=== PATIENT | female | born 1935 | race Caucasian/White ===

== ENCOUNTER → 2016-07-20 | Outpatient (CLI) | payer MEDICARE ==
--- NOTE | 2016-07-20 15:01 | BD ---
EXAMINATION TYPE: MG DEXA axial skeleton. DATE OF EXAM: 07/20/2016 2:12 PM COMPARISON: NONE CLINICAL HISTORY: N19.90 OSTEOARTHRITIS Height: 61 Weight: 215 FRAX RISK QUESTIONS: Alcohol (3 or more units per day): NO Family History (Parent hip fracture): UNKNOWN Glucocorticoids (More than 3mos): YES (Ex: prednisone, prednisolone, methylprednisolone, dexamethasone, and hydrocortisone). History of Fracture in Adulthood: YES Secondary Osteoporosis: NO 1. Type 1 Diabetes: NO 2. Hyperthyroidism: NO 3. Menopause before 45: NO 4. Malnutrition: NO 5. Chronic liver disease: NO Rheumatoid Arthritis: YES Current Tobacco Use: NO RISK FACTORS HISTORY OF: Other Fractures since Age 51: LT FOOT, AND TOES When: 04.13.2016 Family History of Osteoporosis: UNKNOWN Smoke tobacco: NO Drink Alcohol: NO Active: NO Diet low in dairy products/other sources of calcium: NO Postmenopausal woman: HYST AT AGE 60 YRS OLD, TUMOR Lost more than 2 inches in height since high school: PROBABLY Frequent falls: UNSTEADY, OUT OF BREATH Poor Health: SOB, ARTHRITIC, IN WHEELCHAIR Adrenal Insufficiency: NO MEDICATIONS: Prednisone or other steroids: STEROIDS FOR COPD, VENTOLIN AND PREDNISONE NEEDED How Long: FOR YRS Additional Medications: BP MEDS, INSULIN, ORAL DIABETIC MEDS, CALCIUM AND VIT D, HX OF RADIATION, Additional History: COPD, SLEEP APNEA, ARTHRITIS, DIABETIC, HX OF BREAST CANCER, RA, EXAM MEASUREMENTS: Bone mineral densitometry was performed using the [employer] System. Bone mineral density as measured about the Lumbar spine is: ----- L1-L4(G/cm2): 1.290 T Score Values are as follows: ----- L1: -2.2 ----- L2: 2.1 ----- L3: 3.4 ----- L4: 0.4 ----- L1-L4: 0.9 Bone mineral density THIS IS HER FIRST BONE DENSITY AT [facility] Bone mineral density about the R hip (g/cm2): 0.831 Bone mineral density about the L hip (g/cm2): 0.883 T Score values are as follows: -----R Neck: -1.5 -----L Neck: -1.1 -----R Intertrochanter: -1.3 -----L Intertrochanter: -1.0 Bone mineral density FIRST BONE DENSITY HERE AT [facility] FRAX %'S: 25.4% CHANCE OF MAJOR OSTEOPOROTIC FX AND 5.9% FOR A HIP FX.....PROBABILITY OF FX IN 1 0/YRS TIME IMPRESSION: Osteopenia (T Score between -2.5 and -1 as noted by T score values There is slightly increased risk of fracture and the patient may be considered for treatment. Re-Screen 1-2 years. FOR BOTH HIPS AND L4 OF SPINE ONLY NOTE: T-SCORE=SD OF THE YOUNG ADULT MEAN.
== END ==
LOC: RADBDWWP 13:34
PROVIDERS: ATTEND Internal Medicine
DX: M85.80 Other specified disorders of bone density and structure, unspecified site (principal)
CPT/HCPCS: 77080

== ENCOUNTER → 2016-07-25 | Outpatient (CLI) | payer MEDICARE ==
--- NOTE | 2016-07-25 18:01 | US ---
EXAMINATION TYPE: US venous doppler duplex LE BI DATE OF EXAM: 07/25/2016 5:41 PM COMPARISON: Prior in PACS CLINICAL HISTORY: R22.42/R22.41 swelling bilateral lower limbs. SIDE PERFORMED: Bilateral TECHNIQUE: The bilateral lower extremity deep venous system is examined utilizing real time linear a rray sonography with graded compression, doppler sonography and color-flow sonography. VESSELS IMAGED: External Iliac Vein (EIV) Common Femoral Vein Deep Femoral Vein Greater Saphenous Vein * Femoral Vein Popliteal Vein Small Saphenous Vein * Proximal Calf Veins (* superficial vessels) Right Leg: Negative for DVT Left Leg: Negative for DVT IMPRESSION: Grayscale, color doppler, spectral doppler imaging performed of the deep veins of the lo wer extremities. There is normal flow, compressibility, vascular waveforms bilaterally. There is no evidence of deep venous thrombosis in both legs.
--- NOTE | 2016-07-25 18:09 | CT ---
EXAMINATION TYPE: CT angio chest DATE OF EXAM: 07/25/2016 5:59 PM COMPARISON: 12/09/2013 HISTORY: Shortness of breath x [address] DLP: 523.10 mGycm Automated exposure control for dose reduction was used. CONTRAST: CTA scan of the thorax is performed with IV Contrast, patient injected with 73 mL of Visipaque 320, p ulmonary embolism protocol. There are 3-D post processed images.. FINDINGS: There is pulmonary emphysema. There is a right pleural effusion. There is a small pericardial effusio n. There are right bronchial lymph nodes that measure up to almost 2 cm. There 1 cm left bronchial ly mph nodes. There is no evidence of aortic dissection. Thoracic aorta is atheromatous. There is athero sclerotic vascular calcification. There is no evidence of aneurysm. I see no filling defects in the pulmonary arteries. IMPRESSION: NO EVIDENCE OF PULMONARY EMBOLISM. THERE IS CLEARING OF THE PULMONARY EMBOLI COMPARED TO OLD EXAM. THERE IS MILD BRONCHIAL ADENOPATHY TH ERE IS SLIGHTLY INCREASED. SMALL RIGHT PLEURAL EFFUSION IS NEW COMPARED TO OLD EXAM. MILD RIGHT LOWER LOBE ATELECTASIS IS NEW COMPARED TO OLD EXAM. MILD PULMONARY EMPHYSEMA. THERE IS CLEARING OF THE INF ILTRATE AND PLEURAL FLUID AND ATELECTASIS ON THE LEFT SIDE COMPARED TO OLD EXAM.
== END | disposition home or self-care (01) ==
LOC: RADCTMAIN 16:21
PROVIDERS: ATTEND Internal Medicine
DX: J90 Pleural effusion, not elsewhere classified (principal); J43.9 Emphysema, unspecified; R91.8 Other nonspecific abnormal finding of lung field
CPT/HCPCS: 82565; 84520; 93970; 71275; Q9967

== ENCOUNTER 2017-05-02 22:48 | Inpatient (IN) | payer MEDICARE ==
[2017-05-02] MEDS ORDERED: SODIUM CHLORIDE 0.9% 1,000 ML IV STA (22:55)
[2017-05-02] MEDS ORDERED: IPRATROPIUM-ALBUTEROL 3 ML NEB INHALATION STA (22:55)
--- NOTE | 2017-05-02 23:04 | ED ---
SOB HPI - General Stated Complaint: "not feeling well" Time Seen by Provider: 05/02/17 22:48 Source: patient, EMS, RN notes reviewed Mode of arrival: EMS - History of Present Illness Initial Comments: 81-year-old female who presents by EMS with complaints of not feeling well since chest today. She's had fevers chills sweats a cough and shortness of breath. She had dyspnea on exertion she does use oxygen at night but has her using during the day. She denies any overt chest pain she voices no other complaints at this time however. MD Complaint: shortness of breath, cough - Related Data Home Medications Medication Instructions Recorded Confirmed Allopurinol [Zyloprim] 300 mg PO DAILY 10/12/13 04/29/14 Atorvastatin Calcium [Lipitor] 40 mg PO DAILY 10/12/13 04/29/14 Gabapentin [Neurontin] 100 mg PO TID 10/12/13 04/29/14 Insulin Glargine [Lantus] 30 units SQ HS 10/12/13 04/29/14 Metoprolol Tartrate [Lopressor] 50 mg PO BID 10/12/13 04/29/14 Albuterol Nebulized [Ventolin 2.5 mg INHALATION RT-Q4H 12/08/13 04/29/14 Nebulized] Potassium Chloride [Potassium 20 meq PO BID 01/02/14 04/29/14 Chloride ER] Cholecalciferol [Vitamin D3] 4,000 unit PO DAILY 04/29/14 04/29/14 Docusate [Colace] 100 mg PO BID PRN 04/29/14 04/29/14 Furosemide [Lasix] 20 mg PO MOWEFR 04/29/14 04/29/14 Hydrocodone/Acetaminophen 7.5 - 325 mg PO QID PRN 04/29/14 04/29/14 [Hydrocodon-Acetaminoph 7.5-325] INSULIN LISPRO (humaLOG) [humaLOG] 10 units SQ PC-BRKFST 04/29/14 04/29/14 INSULIN LISPRO (humaLOG) [humaLOG] 14 units SQ PC-LUNCH 04/29/14 04/29/14 INSULIN LISPRO (humaLOG) [humaLOG] 16 units SQ PC-SUPPER 04/29/14 04/29/14 Lisinopril [Zestril] 10 mg PO BID 04/29/14 04/29/14 Previous Rx's Medication Instructions Recorded Omeprazole [PriLOSEC] 20 mg PO [facility] #30 capsule. 12/11/13 predniSONE 10 mg PO DIRECTED #24 tab 05/02/14 Azithromycin [Zithromax] 500 mg PO DAILY #5 tab 05/03/14 Budesonide-Formot 160-4.5 Mcg 2 puff INHALATION RT-BID #1 puff 05/03/14 [Symbicort 160-4.5 Mcg Inhaler] Docusate [Colace] 100 mg PO BID PRN #30 cap 05/03/14 Oseltamivir [Tamiflu] 75 mg PO BID #4 cap 05/03/14 Allergies Allergy/AdvReac Type Severity Reaction Status Date / Time No Known Allergies Allergy Verified 05/02/17 22:50 Review of Systems ROS Statement: Those systems with pertinent positive or pertinent negative responses have been documented in the HPI. ROS Other: All systems not noted in ROS Statement are negative. Past Medical History Past Medical History: Asthma, Cancer, Heart Failure, COPD, Diabetes Mellitus, GI Bleed, Hyperlipidemia, Hypertension, Osteoarthritis (OA), Pneumonia, Pulmonary Embolus (PE), Rheumatoid Arthritis (RA), Sleep Apnea/CPAP/BIPAP Additional Past Medical History / Comment(s): sleep apnea ,glaucoma, back pain History of Any Multi-Drug Resistant Organisms: None Reported Past Surgical History: Bowel Resection, Breast Surgery, Ear Surgery, Hysterectomy Additional Past Surgical History / Comment(s): Left breast lumpectomy 1989, lyh node removal, status post radiation, abd mass removed november of 2013 Past Anesthesia/Blood Transfusion Reactions: No Reported Reaction Past Psychological History: No Psychological Hx Reported Additional Psychological History / Comment(s): She lives with a friend, they do not drive. Meals on Wheels. Daughter lives close by and does help. Smoking Status: Former smoker Past Alcohol Use History: None Reported Past Drug Use History: None Reported - Past Family History Mother Family Medical History: Cancer General Exam - General Exam Comments Initial Comments: This is a well-developed well-nourished awake alert oriented 3 female General appearance: alert, in no apparent distress Head exam: Present: atraumatic, normocephalic, normal inspection Eye exam: Present: normal appearance, PERRL, EOMI. Absent: scleral icterus, conjunctival injection, periorbital swelling ENT exam: Present: mucous membranes dry Neck exam: Present: normal inspection. Absent: tenderness, meningismus, lymphadenopathy Respiratory exam: Present: decreased breath sounds. Absent: respiratory distress, wheezes, rales, rhonchi, stridor Cardiovascular Exam: Present: regular rate, normal rhythm, normal heart sounds. Absent: systolic murmur, diastolic murmur, rubs, gallop, clicks GI/Abdominal exam: Present: soft, normal bowel sounds. Absent: distended, tenderness, guarding, rebound, rigid Extremities exam: Present: normal inspection, full ROM, normal capillary refill. Absent: tenderness, pedal edema, joint swelling, calf tenderness Back exam: Present: normal inspection Neurological exam: Present: alert, oriented X3, CN II-XII intact Psychiatric exam: Present: normal affect, normal mood Skin exam: Present: warm, intact, normal color, diaphoretic. Absent: rash Course Vital Signs 05/02/17 05/02/17 05/02/17 22:50 23:21 23:23 Temperature 98.5 F Pulse Rate 86 79 Respiratory 18 Rate Blood Pressure 192/78 O2 Sat by Pulse 89 L 94 L Oximetry 05/02/17 05/03/17 23:28 00:00 Temperature Pulse Rate 82 68 Respiratory 18 Rate Blood Pressure 180/72 O2 Sat by Pulse 93 L Oximetry - Reevaluation(s) Reevaluation #1: 05/03/17 01:35 Reevaluation patient reveals that she still is running a low pulse ox in with oxygen. She desaturates down to about 91 and 92 with oxygen. This is well try to talk. I did discuss the findings with her she will be admitted Medical Decision Making - Medical Decision Making Patient still demonstrate some hypoxemia and dyspnea. She will be admitted for COPD exacerbation. - Lab Data Result diagrams: 05/02/17 23:19 05/02/17 23:19 Lab Results 05/02/17 05/02/17 05/02/17 Range/Units 23:19 23:19 23:19 WBC 10.2 (3.8-10.6) k/uL RBC 4.29 (3.80-5.40) m/uL Hgb 11.1 L (11.4-16.0) gm/dL Hct 36.6 (34.0-46.0) % MCV 85.3 (80.0-100.0) fL MCH 25.9 (25.0-35.0) pg MCHC 30.4 L (31.0-37.0) g/dL RDW 16.2 H (11.5-15.5) % Plt Count 335 (150-450) k/uL Neutrophils % 68 % Lymphocytes % 20 % Monocytes % 6 % Eosinophils % 3 % Basophils % 1 % Neutrophils # 6.9 (1.3-7.7) k/uL Lymphocytes # 2.1 (1.0-4.8) k/uL Monocytes # 0.6 (0-1.0) k/uL Eosinophils # 0.3 (0-0.7) k/uL Basophils # 0.1 (0-0.2) k/uL Hypochromasia Marked Anisocytosis Slight PT (9.0-12.0) sec INR (<1.2) APTT (22.0-30.0) sec Sodium 143 (137-145) mmol/L Potassium 4.6 (3.5-5.1) mmol/L Chloride 106 (98-107) mmol/L Carbon Dioxide 25 (22-30) mmol/L Anion Gap 12 mmol/L BUN 28 H (7-17) mg/dL Creatinine 1.30 H (0.52-1.04) mg/dL Est GFR (MDRD) Af Amer 48 (>60 ml/min/1.73 sqM) Est GFR (MDRD) Non-Af 39 (>60 ml/min/1.73 sqM) Glucose 159 H (74-99) mg/dL Calcium 9.5 (8.4-10.2) mg/dL Magnesium 1.8 (1.6-2.3) mg/dL Total Bilirubin 0.3 (0.2-1.3) mg/dL AST 22 (14-36) U/L ALT 27 (9-52) U/L Alkaline Phosphatase 121 (38-126) U/L Total Creatine Kinase 50 (30-135) U/L CK-MB (CK-2) 0.4 (0.0-2.4) ng/mL CK-MB (CK-2) Rel Index 0.8 Troponin I <0.012 (0.000-0.034) ng/mL NT-Pro-B Natriuret Pep pg/mL Total Protein 6.6 (6.3-8.2) g/dL Albumin 3.7 (3.5-5.0) g/dL 05/02/17 05/02/17 Range/Units 23:19 23:19 WBC (3.8-10.6) k/uL RBC (3.80-5.40) m/uL Hgb (11.4-16.0) gm/dL Hct (34.0-46.0) % MCV (80.0-100.0) fL MCH (25.0-35.0) pg MCHC (31.0-37.0) g/dL RDW (11.5-15.5) % Plt Count (150-450) k/uL Neutrophils % % Lymphocytes % % Monocytes % % Eosinophils % % Basophils % % Neutrophils # (1.3-7.7) k/uL Lymphocytes # (1.0-4.8) k/uL Monocytes # (0-1.0) k/uL Eosinophils # (0-0.7) k/uL Basophils # (0-0.2) k/uL Hypochromasia Anisocytosis PT 9.3 (9.0-12.0) sec INR 0.9 (<1.2) APTT 18.5 L (22.0-30.0) sec Sodium (137-145) mmol/L Potassium (3.5-5.1) mmol/L Chloride (98-107) mmol/L Carbon Dioxide (22-30) mmol/L Anion Gap mmol/L BUN (7-17) mg/dL Creatinine (0.52-1.04) mg/dL Est GFR (MDRD) Af Amer (>60 ml/min/1.73 sqM) Est GFR (MDRD) Non-Af (>60 ml/min/1.73 sqM) Glucose (74-99) mg/dL Calcium (8.4-10.2) mg/dL Magnesium (1.6-2.3) mg/dL Total Bilirubin (0.2-1.3) mg/dL AST (14-36) U/L ALT (9-52) U/L Alkaline Phosphatase (38-126) U/L Total Creatine Kinase (30-135) U/L CK-MB (CK-2) (0.0-2.4) ng/mL CK-MB (CK-2) Rel Index Troponin I (0.000-0.034) ng/mL NT-Pro-B Natriuret Pep 371 pg/mL Total Protein (6.3-8.2) g/dL Albumin (3.5-5.0) g/dL - EKG Data -: EKG Interpreted by Me EKG shows normal: sinus rhythm (EKG shows normal sinus rhythm a 76. Interval 170 QRS duration 80 QT since QTC of 46/[address]-T wave changes are seen. Nonspecific anterior configuration) - Radiology Data Radiology results: report reviewed (I did review the imaging and report no acute findings), image reviewed Critical Care Time Critical Care Time: Yes Critical Care Time: 31 minutes of critical care time which includes initial presentation with history physical labs x-rays. This also includes monitoring the EMS run and discussed with paramedics. Several re-evaluations the patient. Discussed with the patient regarding findings admission orders and documentation the above. Disposition Clinical Impression: COPD with exacerbation, Hypoxemia, Dehydration Disposition: ADMITTED IP TO THIS HOSP Condition: Stable Referrals: Kristopher Amaya MD [Primary Care Provider] - 1-2 days
[2017-05-02 23:33] LABS: Anisocytosis Slight; Basophils # (A) 0.1 k/uL (0-0.2); Basophils % (A) 1 %; Eosinophils # (A) 0.3 k/uL (0-0.7); Eosinophils % (A) 3 %; HCT 36.6 % (34.0-46.0); HGB 11.1 gm/dL (11.4-16.0); Hypochromasia Marked; Lymphocytes # (A) 2.1 k/uL (1.0-4.8); Lymphocytes % (A) 20 %; MCH 25.9 pg (25.0-35.0); MCHC 30.4 g/dL (31.0-37.0); MCV 85.3 fL (80.0-100.0); Mean Platelet Volume 8.5; Monocytes # (A) 0.6 k/uL (0-1.0); Monocytes % (A) 6 %; Neutrophils # (A) 6.9 k/uL (1.3-7.7); Neutrophils % (A) 68 %; Platelet Count 335 k/uL (150-450); RBC 4.29 m/uL (3.80-5.40); RDW 16.2 % (11.5-15.5); WBC 10.2 k/uL (3.8-10.6)
[2017-05-02 23:45] LABS: Albumin 3.7 g/dL (3.5-5.0); Calcium 9.5 mg/dL (8.4-10.2); Magnesium 1.8 mg/dL (1.6-2.3); Potassium 4.6 mmol/L (3.5-5.1); Total Bilirubin 0.3 mg/dL (0.2-1.3); Total Protein 6.6 g/dL (6.3-8.2)
--- NOTE | 2017-05-02 23:54 | XR ---
EXAMINATION TYPE: XR chest 2V DATE OF EXAM: 05/02/2017 COMPARISON: 07/25/2016 HISTORY: Asthma and short of breath. Difficulty breathing. TECHNIQUE: Frontal and lateral views of the chest are obtained. FINDINGS: There is coarsening of the lung markings in the mid and lower lung mcguire. There is no fay ss heart failure. Thoracic aorta is atheromatous. There are chest leads. I see no definite pleural ef fusion. IMPRESSION: Pulmonary fibrotic changes. There is partial clearing of some consolidation at the right lung base compared to old exam. No gross heart failure. No new pulmonary density since old exam. Hea rt is probably enlarged.
[2017-05-02 23:56] LABS: INR 0.9 (<1.2); Prothrombin Time 9.3 sec (9.0-12.0)
[2017-05-03] LABS: Creatine Kinase 50 U/L (30-135)
[2017-05-03 00:01] LABS: Partial Thromboplastin Time 18.5 sec (22.0-30.0)
[2017-05-03 00:13] LABS: Creatine Kinase MB 0.4 ng/mL (0.0-2.4); Troponin I <0.012 ng/mL (0.000-0.034)
[2017-05-03] MEDS ORDERED: SODIUM CHLORIDE 0.9% 500 ML IV STA (00:36)
[2017-05-03] MEDS ORDERED: methylPREDNISolone SOD SUCCI 125 MG/2 ML VIAL IV STA (01:35)
[2017-05-03] MEDS ORDERED: MAGNESIUM SULFATE-D5W PMX 1 GM in DEXTROSE/WATER 1 100ML.BAG IVPB ONE (01:35)
[2017-05-03] MEDS ORDERED: DOCUSATE 100 MG CAP PO PRN (01:51)
[2017-05-03] MEDS ORDERED: IPRATROPIUM-ALBUTEROL 3 ML NEB INHALATION SCH (04:00)
[2017-05-03] MEDS: SODIUM CHLORIDE 0.9% 1,000 ML IV SCH ×3 (06:16→22:16)
[2017-05-03] MEDS: methylPREDNISolone SOD SUCCI 125 MG/2 ML VIAL IV SCH ×2 (06:16→12:39)
[2017-05-03 06:55] LABS: Glucose,Whole Blood 269 mg/dL (75-99)
[2017-05-03] MEDS: INSULIN ASPART 100 UNIT/ML 1 ML 10 ML VIAL SQ SCH ×6 (07:58→22:14)
[2017-05-03] MEDS: ALLOPURINOL 300 MG TAB PO SCH (08:01)
[2017-05-03] MEDS: METOPROLOL TARTRATE 50 MG TAB PO SCH ×2 (08:01→22:16)
[2017-05-03] MEDS: PANTOPRAZOLE 40 MG TABLET PO SCH (08:01)
[2017-05-03] MEDS: GABAPENTIN 100 MG CAP PO SCH ×3 (08:01→22:16)
[2017-05-03] MEDS: CHOLECALCIFEROL 1,000 UNIT TAB PO SCH (08:01)
[2017-05-03] MEDS: ATORVASTATIN 40 MG TAB PO SCH (08:01)
[2017-05-03] MEDS: POTASSIUM CHLORIDE ER 20 MEQ TAB.ER PO SCH ×2 (08:02→22:16)
[2017-05-03] MEDS ORDERED: INSULIN ASPART 100 UNIT/ML 1 ML 10 ML VIAL SQ SCH ×3 (08:30→18:30)
[2017-05-03] MEDS: IPRATROPIUM-ALBUTEROL 3 ML NEB INHALATION SCH ×4 (08:37→21:12)
[2017-05-03] MEDS ORDERED: OSELTAMIVIR 75 MG CAP PO SCH (09:00)
[2017-05-03] MEDS ORDERED: LISINOPRIL 10 MG TAB PO SCH (09:00)
[2017-05-03] MEDS ORDERED: FUROSEMIDE 20 MG TAB PO SCH (09:00)
[2017-05-03] MEDS ORDERED: HYDROcodone/APAP 7.5-325MG 1 EACH TAB PO PRN (11:03)
[2017-05-03 11:33] LABS: Glucose,Whole Blood 408 mg/dL (75-99)
--- NOTE | 2017-05-03 12:24 | P.CNPUL ---
History of Present Illness Consult date: 05/03/17 Requesting physician: Kurt Shook Reason for consult: dyspnea Chief complaint: Fatigue, sweating History of present illness: This is a very pleasant 81-year-old female patient who follows with Dr. Jose Luis vernon as her primary care physician. 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 She presented here to the emergency room yesterday after developing an episode of diaphoresis fatigue and weakness. She had some chest pressure. Did notice increasing shortness of breath more so on exertion as well. He was found to have hypoxemia which rations in the 80s and was admitted for COPD exacerbation. Chest x-ray revealed some pulmonary fibrotic changes in the bases. No consolidation. No leukocytosis. Hemoglobin was 11.1. Creatinine 1.30. ProBNP 371, troponins negative. She is seen today on the regular medical floor and consultation. She is awake and alert in no acute distress. She states she is feeling quite a bit better today are ready as compared to yesterday. Nearly back to her baseline. Her saturations have improved up into the 90s. He was initiated on IV Solu-Medrol and bronchodilators. Review of Systems 14 point review of system was conducted. All negative other than as mentioned in the HPI. Past Medical History Past Medical History: Asthma, Cancer, Heart Failure, COPD, Diabetes Mellitus, GI Bleed, Hyperlipidemia, Hypertension, Osteoarthritis (OA), Pneumonia, Pulmonary Embolus (PE), Rheumatoid Arthritis (RA), Sleep Apnea/CPAP/BIPAP Additional Past Medical History / Comment(s): sleep apnea ,glaucoma, back pain History of Any Multi-Drug Resistant Organisms: None Reported Past Surgical History: Bowel Resection, Breast Surgery, Ear Surgery, Hysterectomy Additional Past Surgical History / Comment(s): Left breast lumpectomy 1989, lypmh node removal, status post radiation, abd mass removed november of 2013 Past Anesthesia/Blood Transfusion Reactions: No Reported Reaction Past Psychological History: No Psychological Hx Reported Additional Psychological History / Comment(s): Lives alone. Meals on Wheels. Daughter lives close by and does help. Smoking Status: Former smoker Past Alcohol Use History: None Reported Past Drug Use History: None Reported - Past Family History Mother Family Medical History: Cancer Medications and Allergies Home Medications Medication Instructions Recorded Confirmed Type Allopurinol [Zyloprim] 300 mg PO DAILY PRN 10/12/13 05/03/17 History Atorvastatin Calcium [Lipitor] 40 mg PO DAILY 10/12/13 05/03/17 History Gabapentin [Neurontin] 100 mg PO TID 10/12/13 05/03/17 History Insulin Glargine [Lantus] 48 units SQ HS 10/12/13 05/03/17 History Metoprolol Tartrate [Lopressor] 50 mg PO BID 10/12/13 05/03/17 History Albuterol Nebulized [Ventolin 2.5 mg INHALATION RT-Q6H PRN 12/08/13 05/03/17 History Nebulized] Omeprazole [PriLOSEC] 20 mg PO -BRKFST #30 capsule. 12/11/13 05/03/17 Rx Cholecalciferol [Vitamin D3] 4,000 unit PO DAILY 04/29/14 05/03/17 History Hydrocodone/Acetaminophen 1 tab PO QID PRN 04/29/14 05/03/17 History [Hydrocodon-Acetaminoph 7.5-325] INSULIN LISPRO (humaLOG) [humaLOG] 15 units SQ PC-BRKFST 04/29/14 05/03/17 History INSULIN LISPRO (humaLOG) [humaLOG] 17 units SQ PC-LUNCH 04/29/14 05/03/17 History INSULIN LISPRO (humaLOG) [humaLOG] 17 units SQ PC-SUPPER 04/29/14 05/03/17 History Albuterol Inhaler [Ventolin Hfa 1 - 2 puff INHALATION RT-Q6H PRN 05/03/17 History Inhaler] Enalapril [Vasotec] 5 mg PO DAILY 05/03/17 05/03/17 History Furosemide [Lasix] 40 mg PO DAILY 05/03/17 05/03/17 History Lisinopril [Zestril] 10 mg PO DAILY 05/03/17 05/03/17 History Potassium Chloride ER [K-Dur 10] 20 meq PO DAILY 05/03/17 05/03/17 History amLODIPine [Norvasc] 5 mg PO DAILY 05/03/17 05/03/17 History Allergies Allergy/AdvReac Type Severity Reaction Status Date / Time No Known Allergies Allergy Verified 05/03/17 08:38 Physical Exam Vitals: Vital Signs Temp Pulse Pulse Resp BP BP Pulse Ox 05/03/17 12:02 80 18 05/03/17 08:47 78 05/03/17 08:37 78 18 97 05/03/17 08:00 80 18 05/03/17 07:00 98 F 80 18 184/67 92 L 05/03/17 06:19 78 160/64 05/03/17 03:42 98 F 72 17 197/76 94 L 05/03/17 01:57 62 16 141/94 93 L 05/03/17 00:00 68 18 180/72 93 L 05/02/17 23:28 82 05/02/17 23:23 94 L 05/02/17 23:21 79 05/02/17 22:50 98.5 F 86 18 192/78 89 L Intake and Output 05/02/17 05/03/17 05/03/17 22:59 06:59 14:59 Other: Voiding Method Toilet Toilet Weight 86.183 kg GENERAL EXAM: Obese. Alert, active, comfortable in no apparent distress. HEAD: Normocephalic. EYES: Normal reaction of pupils, equal size. NOSE: Clear with pink turbinates. THROAT: No erythema or exudates. NECK: No masses, no JVD. CHEST: No chest wall deformity. LUNGS: Equal air entry with no crackles, wheeze, rhonchi or dullness. CVS: S1 and S2 normal with no audible murmur, regular rhythm. ABDOMEN: No hepatosplenomegaly, normal bowel sounds, no guarding or rigidity. SPINE: No scoliosis or deformity SKIN: No rashes CENTRAL NERVOUS SYSTEM: No focal deficits, tone is normal in all 4 extremities. EXTREMITIES: There is no peripheral edema. No clubbing, no cyanosis. Peripheral pulses are intact. Results - Laboratory Findings CBC and BMP: 05/02/17 23:19 05/02/17 23:19 PT/INR, D-dimer PT 9.3 sec (9.0-12.0) 05/02/17 23:19 INR 0.9 (<1.2) 05/02/17 23:19 Abnormal lab findings: Abnormal Labs 05/02/17 05/02/17 05/02/17 23:19 23:19 23:19 Hgb 11.1 L MCHC 30.4 L RDW 16.2 H APTT 18.5 L BUN 28 H Creatinine 1.30 H Glucose 159 H POC Glucose (mg/dL) 05/03/17 05/03/17 06:52 11:31 Hgb MCHC RDW APTT BUN Creatinine Glucose POC Glucose (mg/dL) 269 H 408 H - Diagnostic Findings Chest x-ray: image reviewed Assessment and Plan Assessment: Impression: #1 Acute exacerbation of severe oxygen dependent chronic obstructive pulmonary disease. #2 Acute on chronic hypoxic respiratory failure secondary to above. #3 Morbid obesity. #4 Obstructive sleep apnea utilizing CPAP in the outpatient setting. #5 Remote history of chronic tobacco dependence. #6 Diabetes mellitus. #7 Hypertension. #8 Hyperlipidemia. #9 History of ovarian cyst adenocarcinoma status post bilateral salpingo- oophorectomy and resection of the mass performed at [facility]. #10 Postoperative pulmonary embolism treated with Xarelto. 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 #12 Chronic back pain. #13 History of gout. Plan: The patient was seen and evaluated by Dr. Amaya. Her chest x-ray and labs were reviewed. She will is treated for mild exacerbation of her COPD. We'll continue with bronchodilators, continue IV Solu-Medrol. No need for empiric antibiotics at this point. We will increase her activity as tolerated. We'll continue to follow. Plan for probable discharge in a.m. I, the cosigning physician, have performed a history and physical examination on the patient. Lung sounds have faint end expiratory wheeze. Diminished. Maintaining good O2 saturations in the 90s on 2 L/m per nasal cannula. I have discussed the assessment and plan of care with my nurse practitioner, Mamta Leo. I attest the above documented note as dictated by her. Time with Patient: Greater than 30
[2017-05-03] MEDS ORDERED: METOPROLOL TARTRATE 50 MG TAB PO STA (14:27)
[2017-05-03 17:42] LABS: Glucose,Whole Blood 350 mg/dL (75-99)
--- NOTE | 2017-05-03 18:43 | HP ---
HISTORY AND PHYSICAL DATE OF ADMISSION: 05/03/2017 PRESENTING COMPLAINT: Short of breath, chest pain. HISTORY OF PRESENTING COMPLAINT: This is a very pleasant 81-year-old patient who follows with Dr. Amaya. She used to follow with outboard technician Dr. Cathie Coronel, who is now retired. Chronic stable medical conditions include GI AV malformation, congestive heart failure, diabetes, hypertension, rheumatoid arthritis, obstructive sleep apnea and hyperuricemia. The patient presents with one day of episodes of increasing shortness of breath, also experiencing chest pressure going across the chest lasting for a few hours. Some dizziness, some lightheadedness. Not really feeling well for last 2 days. Some lower extremity edema, minimal cough. No sputum. She presented for the same patient. Patient's initial troponin was negative. The patient has had a myocardial infarction in the past. Normally uses a walker to get about. Denies any fever. REVIEW OF SYSTEMS: CONSTITUTIONAL: Tired. HEENT: Decreased hearing. RESPIRATORY: As above. CARDIOVASCULAR: As above. GASTROINTESTINAL: None. GENITOURINARY: None. MUSCULOSKELETAL: Some pain in the joints. DERMATOLOGICAL: None. HEMATOLOGICAL: None. LYMPHATICS: None. PSYCHIATRY: None. NEUROLOGICAL: None. PAST HISTORY: 1. GI bleed from AV malformation. 2. Myocardial infarction. 3. Congestive heart failure. 4. Diabetes. 5. Hypertension. 6. Pulmonary embolism. 7. Rheumatoid arthritis. 8. Obstructive sleep apnea. 9. Hyperuricemia. PAST SURGICAL HISTORY: 1. Bowel resection. 2. Breast surgery. 3. Ear surgery. 4. Left breast lumpectomy. 5. Lymph node removed. 6. Abdominal mass removed. SOCIAL HISTORY: Lives alone. Meals on Wheels. Daughter lives close by, who helps. Patient was a smoker in the remote past. No alcohol. FAMILY HISTORY: Cancer, type unknown. HOME MEDICATIONS: 1. Amlodipine 5 mg p.o. daily. 2. Potassium 20 mEq p.o. daily. 3. Zestril 10 mg p.o. daily. 4. Lasix 40 mg p.o. daily. 5. Vasotec 5 mg p.o. daily. 6. Ventolin HFA 1 or 2 puffs q.6 p.r.n. 7. Prilosec 20 mg p.o. at breakfast. 8. Lopressor 50 mg p.o. b.i.d. 9. Lantus 48 units subcutaneously at bedtime. 10.Humalog 15 units with breakfast, 17 with lunch and supper. 11.[place] 7.5 one tablet q.i.d. p.r.n. 12.Neurontin 100 mg p.o. t.i.d. 13.Lipitor 40 mg p.o. daily. 14.Allopurinol 300 mg p.o. daily p.r.n. 15.Ventolin 2.5 q.6 p.r.n. 16.Vitamin D3 4000 units p.o. daily. ALLERGIES: NONE. PHYSICAL EXAMINATION: VITAL SIGNS ON PRESENTATION: Temperature 98.5, pulse 86, respiration 18, blood pressure 192/78, pulse ox 89% on room air. GENERAL APPEARANCE: Well built; BMI 35.9. Sitting up, tired-appearing. EYES: Pupils equal. Conjunctivae normal. HEENT: Oral cavity normal. NECK: JVD not raised. Mass not palpable. RESPIRATORY: Effort normal. LUNGS: Decreased breath sounds. CARDIOVASCULAR: First and second sounds normal. Edema present. ABDOMEN: Soft, nontender. Liver and spleen not palpable. LYMPHATIC: No lymph node palpable in neck or axillae. PSYCHIATRY: Alert and oriented x3. Mood and affect normal. NEUROLOGICAL: Pupils equal. Cranial nerves grossly intact. Power and sensation grossly intact. MUSCULOSKELETAL: Evidence of osteoarthritis. INVESTIGATIONS: White count 10.2, hemoglobin 11.1, platelets 235. Potassium 4.6, BUN 28, creatinine 1.30. Accu-Cheks are noted. Chest x-ray is a bit underexposed. ASSESSMENT: 1. This is a patient presents with 2 days of not feeling well. Some chest pressure, dizziness, lightheadedness in a patient with a prior myocardial infarction. The patient's BNP is only 371. Need to consider unstable angina. 2. Gastrointestinal AV malformation. 3. Chronic congestive heart failure from systolic dysfunction, ejection fraction 45% to 50% from 2014 from ischemic cardiomyopathy. 4. Diabetes mellitus, type 2, chronically on insulin. 5. Essential hypertension, uncontrolled on presentation. 6. Chronic rheumatoid arthritis. 7. Obstructive sleep apnea. Uses CPAP machine. 8. 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 PLAN: This does not appear to be COPD exacerbation. Home medications will be resumed. Will get a 2-D echocardiogram, order a cardiology consult. Will check one more troponin. Discontinue the Solu-Medrol. Dr. Amaya was consulted. Care was discussed with the patient. MMODL / IJN: [id number] /
[2017-05-03 21:16] LABS: Glucose,Whole Blood 384 mg/dL (75-99)
[2017-05-03] MEDS: INSULIN DETEMIR 100 UNIT/ML 10 ML VIAL SQ SCH (22:15)
[2017-05-04] MEDS: IPRATROPIUM-ALBUTEROL 3 ML NEB INHALATION PRN (03:18)
[2017-05-04 06:05] LABS: Glucose,Whole Blood 330 mg/dL (75-99)
[2017-05-04 06:21] LABS: Calcium 9.1 mg/dL (8.4-10.2); Potassium 5.5 mmol/L (3.5-5.1)
[2017-05-04] MEDS: INSULIN ASPART 100 UNIT/ML 1 ML 10 ML VIAL SQ SCH ×7 (06:37→21:01)
[2017-05-04] MEDS: PANTOPRAZOLE 40 MG TABLET PO SCH (06:37)
[2017-05-04] MEDS: IPRATROPIUM-ALBUTEROL 3 ML NEB INHALATION SCH ×4 (08:23→20:25)
[2017-05-04] MEDS ORDERED: NON-FORMULARY DRUG (Enalapril 5 MG) PO SCH (09:00)
[2017-05-04] MEDS: ATORVASTATIN 40 MG TAB PO SCH (09:15)
[2017-05-04] MEDS: CHOLECALCIFEROL 1,000 UNIT TAB PO SCH (09:15)
[2017-05-04] MEDS: ALLOPURINOL 300 MG TAB PO SCH (09:15)
[2017-05-04] MEDS: amLODIPine 5 MG TAB PO SCH (09:15)
[2017-05-04] MEDS: GABAPENTIN 100 MG CAP PO SCH ×3 (09:16→21:00)
[2017-05-04] MEDS: METOPROLOL TARTRATE 50 MG TAB PO SCH ×2 (09:16→21:00)
[2017-05-04] MEDS: LISINOPRIL 10 MG TAB PO SCH (09:16)
--- NOTE | 2017-05-04 09:52 | P.PN ---
Subjective Progress Note Date: 05/04/17 Principal diagnosis: Acute exacerbation of COPD, acute on chronic hypoxic respiratory failure This is a very pleasant 81-year-old female patient who follows with Dr. Jose Luis vernon as her primary care physician. 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 She presented here to the emergency room yesterday after developing an episode of diaphoresis fatigue and weakness. She had some chest pressure. Did notice increasing shortness of breath more so on exertion as well. He was found to have hypoxemia which rations in the 80s and was admitted for COPD exacerbation. Chest x-ray revealed some pulmonary fibrotic changes in the bases. No consolidation. No leukocytosis. Hemoglobin was 11.1. Creatinine 1.30. ProBNP 371, troponins negative. She is seen today on the regular medical floor and consultation. She is awake and alert in no acute distress. She states she is feeling quite a bit better today are ready as compared to yesterday. Nearly back to her baseline. Her saturations have improved up into the 90s. He was initiated on IV Solu-Medrol and bronchodilators. Reevaluated today on 05/04/2017, patient is feeling a bit better, less cough and less wheezing less shortness of breath. Labs were reviewed, sugar seems high and that's because of the high-dose of Solu-Medrol that she is presently on. BUN is 34 creatinine is 1.20. Objective - Vital Signs Vital signs: Vital Signs Temp 97 F L 05/04/17 03:20 Pulse 80 05/04/17 08:36 Resp 30 H 05/04/17 03:22 BP 121/77 05/04/17 03:20 Pulse Ox 95 05/04/17 03:20 Intake & Output 05/03/17 05/04/17 05/04/17 18:59 06:59 18:59 Intake Total 1180 1400 Output Total 450 Balance 1180 950 Weight 106 kg Intake: Intake, IV Titration 600 1400 Amount Sodium Chloride 0.9% 1, 600 1400 000 ml @ 100 mls/hr IV . Q10H [facility] Rx#:[id number] Oral 580 Output: Urine 450 Other: Voiding Method Toilet Toilet # Voids 3 1 - Exam GENERAL EXAM: Obese. Alert, active, comfortable in no apparent distress. HEAD: Normocephalic. EYES: Normal reaction of pupils, equal size. NOSE: Clear with pink turbinates. THROAT: No erythema or exudates. NECK: No masses, no JVD. CHEST: No chest wall deformity. LUNGS: Equal air entry with no crackles, wheeze, rhonchi or dullness. CVS: S1 and S2 normal with no audible murmur, regular rhythm. ABDOMEN: No hepatosplenomegaly, normal bowel sounds, no guarding or rigidity. SPINE: No scoliosis or deformity SKIN: No rashes CENTRAL NERVOUS SYSTEM: No focal deficits, tone is normal in all 4 extremities. EXTREMITIES: There is no peripheral edema. No clubbing, no cyanosis. Peripheral pulses are intact. - Labs CBC & Chem 7: 05/02/17 23:19 05/04/17 05:42 Labs: Abnormal Lab Results - Last 24 Hours (Table) 05/03/17 05/03/17 05/03/17 Range/Units 11:31 17:29 18:20 Potassium (3.5-5.1) mmol/L Chloride (98-107) mmol/L BUN (7-17) mg/dL Creatinine (0.52-1.04) mg/dL Glucose (74-99) mg/dL POC Glucose (mg/dL) 408 H 350 H (75-99) mg/dL Troponin I 0.091 H* (0.000-0.034) ng/mL 05/03/17 05/04/17 05/04/17 Range/Units 21:14 05:42 06:04 Potassium 5.5 H (3.5-5.1) mmol/L Chloride 109 H (98-107) mmol/L BUN 34 H (7-17) mg/dL Creatinine 1.20 H (0.52-1.04) mg/dL Glucose 352 H (74-99) mg/dL POC Glucose (mg/dL) 384 H 330 H (75-99) mg/dL Troponin I (0.000-0.034) ng/mL Microbiology - Last 24 Hours (Table) 05/02/17 23:19 Blood Culture - Preliminary Blood No Growth after 24 hours Assessment and Plan Assessment: #1 Acute exacerbation of severe oxygen dependent chronic obstructive pulmonary disease. #2 Acute on chronic hypoxic respiratory failure secondary to above. #3 Morbid obesity. #4 Obstructive sleep apnea utilizing CPAP in the outpatient setting. #5 Remote history of chronic tobacco dependence. #6 Diabetes mellitus. #7 Hypertension. #8 Hyperlipidemia. #9 History of ovarian cyst adenocarcinoma status post bilateral salpingo- oophorectomy and resection of the mass performed at [facility]. #10 Postoperative pulmonary embolism treated with Xarelto. 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 #12 Chronic back pain. #13 History of gout. Recommendation: Continue present treatment plan, consider discharge planning today assuming the patient continues to improve. Follow-up on outpatient basis with me. Time with Patient: Less than 30
--- NOTE | 2017-05-04 10:12 | P.CRDCN ---
History of Present Illness Consult date: 05/04/17 Requesting physician: Kurt Shook Reason for Consult (text): shortness of breath Chief complaint: shortness of breath History of present illness: Is a pleasant 81-year-old female followed with Dr. Lindsay dependent COPD, prior pulmonary embolism treated with Xarelto, GI bleed secondary to colonic AV malformation and has been off anticoagulants, hypertension, hyperlipidemia, diabetes, ovarian cyst and no carcinoma status post salpingo- oophorectomy and resection of mass at [facility] and history of heart murmur and she believes possibly an [place] in the past. Presented to the hospital this admission with complaints of diaphoresis, fatigue, weakness, shortness of breath and some chest heaviness. She was found to be hypoxic with O2 sat durations in the 80s and was admitted for COPD exacerbation. On admission, upon and was negative and EKG showed sinus rhythm with nonspecific ST-T wave abnormalities. She was seen yesterday by the admitting physician, Dr. Shook who was concerned regarding the chest heaviness she had prior to admission and ordered a repeat troponin last evening as well as a repeat EKG. This troponin came in to be elevated at 0.[address] depression in leads V4-V5. According to the patient, she's had no chest discomfort since admission. Her breathing is much improved. Past Medical History Past Medical History: Asthma, Cancer, Heart Failure, COPD, Diabetes Mellitus, GI Bleed, Hyperlipidemia, Hypertension, Osteoarthritis (OA), Pneumonia, Pulmonary Embolus (PE), Rheumatoid Arthritis (RA), Sleep Apnea/CPAP/BIPAP Additional Past Medical History / Comment(s): sleep apnea ,glaucoma, back pain History of Any Multi-Drug Resistant Organisms: None Reported Past Surgical History: Bowel Resection, Breast Surgery, Ear Surgery, Hysterectomy Additional Past Surgical History / Comment(s): Left breast lumpectomy 1989, lypmh node removal, status post radiation, abd mass removed november of 2013 Past Anesthesia/Blood Transfusion Reactions: No Reported Reaction Past Psychological History: No Psychological Hx Reported Additional Psychological History / Comment(s): Lives alone. Meals on Wheels. Daughter lives close by and does help. Smoking Status: Former smoker Past Alcohol Use History: None Reported Past Drug Use History: None Reported - Past Family History Mother Family Medical History: Cancer Medications and Allergies Home Medications Medication Instructions Recorded Confirmed Type Allopurinol [Zyloprim] 300 mg PO DAILY PRN 10/12/13 05/03/17 History Atorvastatin Calcium [Lipitor] 40 mg PO DAILY 10/12/13 05/03/17 History Gabapentin [Neurontin] 100 mg PO TID 10/12/13 05/03/17 History Insulin Glargine [Lantus] 48 units SQ HS 10/12/13 05/03/17 History Metoprolol Tartrate [Lopressor] 50 mg PO BID 10/12/13 05/03/17 History Albuterol Nebulized [Ventolin 2.5 mg INHALATION RT-Q6H PRN 12/08/13 05/03/17 History Nebulized] Omeprazole [PriLOSEC] 20 mg PO -BRKFST #30 capsule. 12/11/13 05/03/17 Rx Cholecalciferol [Vitamin D3] 4,000 unit PO DAILY 04/29/14 05/03/17 History Hydrocodone/Acetaminophen 1 tab PO QID PRN 04/29/14 05/03/17 History [Hydrocodon-Acetaminoph 7.5-325] INSULIN LISPRO (humaLOG) [humaLOG] 15 units SQ PC-BRKFST 04/29/14 05/03/17 History INSULIN LISPRO (humaLOG) [humaLOG] 17 units SQ PC-LUNCH 04/29/14 05/03/17 History INSULIN LISPRO (humaLOG) [humaLOG] 17 units SQ PC-SUPPER 04/29/14 05/03/17 History Albuterol Inhaler [Ventolin Hfa 1 - 2 puff INHALATION RT-Q6H PRN 05/03/17 History Inhaler] Enalapril [Vasotec] 5 mg PO DAILY 05/03/17 05/03/17 History Furosemide [Lasix] 40 mg PO DAILY 05/03/17 05/03/17 History Lisinopril [Zestril] 10 mg PO DAILY 05/03/17 05/03/17 History Potassium Chloride ER [K-Dur 10] 20 meq PO DAILY 05/03/17 05/03/17 History amLODIPine [Norvasc] 5 mg PO DAILY 05/03/17 05/03/17 History Allergies Allergy/AdvReac Type Severity Reaction Status Date / Time No Known Allergies Allergy Verified 05/03/17 08:38 Physical Exam Vitals: Vital Signs Temp Pulse Pulse Resp BP Pulse Ox 05/04/17 08:36 80 05/04/17 08:23 80 05/04/17 03:28 73 05/04/17 03:22 30 H 05/04/17 03:20 97 F L 83 30 H 121/77 95 05/04/17 03:18 77 05/04/17 00:00 97.9 F 79 20 148/63 95 05/03/17 21:25 82 05/03/17 21:14 97.9 F 73 18 168/73 94 L 05/03/17 21:12 83 05/03/17 21:07 97.5 F L 80 18 142/80 91 L 05/03/17 20:53 168/73 05/03/17 17:28 80 05/03/17 17:15 81 96 05/03/17 16:00 77 18 05/03/17 15:00 98.6 F 77 18 190/69 94 L 05/03/17 12:12 80 05/03/17 12:02 80 18 Intake and Output 05/03/17 05/04/17 05/04/17 22:59 06:59 14:59 Intake Total 600 800 Output Total 450 Balance 600 350 Intake: Intake, IV Titration 600 800 Amount Sodium Chloride 0.9% 1, 600 800 000 ml @ 100 mls/hr IV . Q10H REPLACED BY [facility] Rx#:[id number] Output: Urine 450 Other: Voiding Method Toilet Toilet # Voids 1 Weight 106 kg PHYSICAL EXAMINATION: HEENT: Head is atraumatic, normocephalic. Pupils equal, round. Neck is supple. There is no elevated jugular venous pressure. HEART EXAMINATION: Heart sounds regular, S1 and S2. Systolic ejection murmur. CHEST EXAMINATION: Lungs reveal diminished air entry bilaterally. No chest wall tenderness is noted on palpation or with deep breathing. ABDOMEN: Soft, obese, nontender. Bowel sounds are heard. No organomegaly noted. EXTREMITIES: 2+ peripheral pulses with no evidence of peripheral edema and no calf tenderness noted. NEUROLOGIC patient is awake, alert and oriented x3. . Results 05/02/17 23:19 05/04/17 05:42 Cardiac Enzymes 05/03/17 Range/Units 18:20 Troponin I 0.091 H* (0.000-0.034) ng/mL Comprehensive Metabolic Panel 05/04/17 Range/Units 05:42 Sodium 140 (137-145) mmol/L Potassium 5.5 H (3.5-5.1) mmol/L Chloride 109 H (98-107) mmol/L Carbon Dioxide 22 (22-30) mmol/L BUN 34 H (7-17) mg/dL Creatinine 1.20 H (0.52-1.04) mg/dL Glucose 352 H (74-99) mg/dL Calcium 9.1 (8.4-10.2) mg/dL Current Medications Generic Name Dose Route Start Last Admin Trade Name Freq PRN Reason Stop Dose Admin Hydrocodone Bitart/Acetaminophen 1 each 05/03/17 11:03 [place] 7.5-325 PO QID PRN Moderate Pain Albuterol/Ipratropium 3 ml 05/03/17 08:00 05/04/17 08:23 Duoneb 0.5 Mg-3 Mg/3 Ml Soln INHALATION 3 ml RT-QID [facility] Administration Albuterol/Ipratropium 3 ml 05/03/17 03:21 05/04/17 03:18 Duoneb 0.5 Mg-3 Mg/3 Ml Soln INHALATION 3 ml RT-Q2H PRN Administration Shortness Of Breath Or Wheezing Allopurinol 300 mg 05/03/17 09:00 05/04/17 09:15 Zyloprim PO 300 mg DAILY [facility] Administration Amlodipine Besylate 5 mg 05/04/17 09:00 05/04/17 09:15 Norvasc PO 5 mg DAILY SUM[facility] Administration Atorvastatin Calcium 40 mg 05/03/17 09:00 05/04/17 09:15 Lipitor PO 40 mg DAILY [facility] Administration Cholecalciferol 4,000 unit 05/03/17 09:00 05/04/17 09:15 Vitamin D3 PO 4,000 unit DAILY [facility] Administration Docusate Sodium 100 mg 05/03/17 01:51 Colace PO BID PRN Constipation Furosemide 20 mg 05/03/17 09:00 05/03/17 08:02 Lasix PO 20 mg [id number] [facility] Administration Gabapentin 100 mg 05/03/17 09:00 05/04/17 09:16 Neurontin PO 100 mg TID SUM[facility] Administration Sodium Chloride 1,000 mls @ 100 mls/hr 05/03/17 02:00 05/03/17 22:16 Saline 0.9% IV Not Given .Q10H [facility] Insulin Aspart 0 unit 05/03/17 07:30 05/04/17 06:37 Novolog SQ 6 unit ACHS [facility] Administration Protocol Insulin Aspart 15 unit 05/04/17 08:30 Novolog SQ PC-BRKFST [facility] Insulin Aspart 17 unit 05/03/17 13:30 05/03/17 12:42 Novolog SQ 17 unit PC-LUNCH [facility] Administration Insulin Aspart 17 unit 05/03/17 18:30 05/03/17 18:09 Novolog SQ 17 unit PC-SUPPER [facility] Administration Insulin Detemir 30 unit 05/03/17 21:00 05/03/17 22:15 Levemir SQ 30 unit HS [facility] Administration Lisinopril 10 mg 05/04/17 09:00 05/04/17 09:16 Zestril PO 10 mg DAILY [facility] Administration Metoprolol Tartrate 50 mg 05/03/17 09:00 05/04/17 09:16 Lopressor PO 50 mg BID [facility] Administration Pantoprazole Sodium 40 mg 05/03/17 07:30 05/04/17 06:37 Protonix PO 40 mg AC-BRKFST [facility] Administration Potassium Chloride 20 meq 05/03/17 09:00 05/03/17 22:16 K-Dur 20 PO 20 meq BID [facility] Administration Intake and Output 05/03/17 05/04/17 05/04/17 22:59 06:59 14:59 Intake Total 600 800 Output Total 450 Balance 600 350 Intake: Intake, IV Titration 600 800 Amount Sodium Chloride 0.9% 1, 600 800 000 ml @ 100 mls/hr IV . Q10H [facility] Rx#:[id number] Output: Urine 450 Other: Voiding Method Toilet Toilet # Voids 1 Weight 106 kg 05/02/17 23:19 05/04/17 05:42 Assessment and Plan Assessment: 1 acute exacerbation of COPD, oxygen dependent #2 acute and chronic hypoxic respiratory failure #3 symptoms of chest heaviness #4 troponin leak with EKG changes, will follow trend #5 diabetes mellitus #6 hypertension #7 hyperlipidemia #8 history of pulmonary embolism, not currently anticoagulated secondary to GI bleed due to colonic AV malformation #9 questionable history of [place] Plan: From cardiology's perspective, we will review 2-D echo with Doppler to assess LV function. We will repeat troponin. Will obtain records from our office to clarify history of [place]. Maximize medical therapy. Further recommendations to follow. GEOLOGIST PETROLEUM note has been reviewed, I agree with a documented findings and plan of care. Patient was seen and examined.
[2017-05-04 11:46] LABS: Glucose,Whole Blood 277 mg/dL (75-99)
[2017-05-04] MEDS ORDERED: HEPARIN SODIUM,PORCINE 5,000 UNIT/ML 1 ML VIAL IV PRN (12:23)
[2017-05-04] MEDS ORDERED: HEPARIN SODIUM,PORCINE 5,000 UNIT/ML 1 ML VIAL IV ONE (12:23)
[2017-05-04] MEDS: ASPIRIN 81 MG PO SCH (12:32)
[2017-05-04] MEDS: POTASSIUM CHLORIDE ER 20 MEQ TAB.ER PO SCH (12:33)
[2017-05-04 12:37] LABS: Basophils % (A) 0 %; Eosinophils % (A) 0 %; HCT 35.4 % (34.0-46.0); HGB 10.1 gm/dL (11.4-16.0); Hypochromasia Marked; Lymphocytes % (A) 8 %; MCH 25.4 pg (25.0-35.0); MCHC 28.4 g/dL (31.0-37.0); MCV 89.5 fL (80.0-100.0); Mean Platelet Volume 9.4; Monocytes # (A) 0.7 k/uL (0-1.0); Monocytes % (A) 6 %; Neutrophils # (A) 10.3 k/uL (1.3-7.7); Neutrophils % (A) 84 %; Platelet Count 308 k/uL (150-450); RBC 3.96 m/uL (3.80-5.40); RDW 14.7 % (11.5-15.5); WBC 12.2 k/uL (3.8-10.6)
[2017-05-04 12:51] LABS: Prothrombin Time 9.8 sec (9.0-12.0)
[2017-05-04] MEDS: HEPARIN SOD,PORK IN 0.45% NACL 25,000 UNIT in 0.45% NACL 1 500ML.BAG IV SCH (15:11)
[2017-05-04 16:46] LABS: Glucose,Whole Blood 188 mg/dL (75-99)
[2017-05-04] MEDS ORDERED: SODIUM POLYSTYRENE SULFONATE 15 GM/60 ML BOTTLE PO STA (16:56)
--- NOTE | 2017-05-04 17:11 | P.PN ---
Progress Note - Text Progress Note Date: 05/04/17 DATE OF SERVICE: 05/04/2017 PRESENTING COMPLAINT: Short of breath, chest pain HISTORY OF PRESENT ILLNESS: 81-year-old female who presented with 1 day episode of increasing shortness of breath and chest pressure going across the chest lasting for a few hours. Some dizziness and lightheadedness mild lower extremity edema, minimal cough no sputum. First troponin was negative, admitted for COPD exacerbation. Attending physician concerned regarding patient's chest pressure, repeated a second troponin and found to be elevated with EKG showing ST depression in lead 4 and 5 transferred to 6 E. selective for closer cardiac monitoring cardiology consult placed. INTERVAL HISTORY: 05/04/2017: Sitting up on the edge of the bed, states she feels well. No chest pain or pressure since admission. Able to ambulate with assistance to and from the bathroom, was nothing by mouth overnight in anticipation for possible cardiac intervention. At the present time does not appear to be the case. Last BM prior to admission. REVIEW OF SYSTEMS: Done for constitutional ,cardiovascular, GI, pulmonary with relevant findings as above. CURRENT MEDICATIONS [place], DuoNeb, Zyloprim, Norvasc, aspirin, Lipitor, cholecalciferol, vitamin D3 , Lasix, Neurontin, heparin drip, insulin, lisinopril, Lopressor, Protonix, K Dur, normal saline. PHYSICAL EXAM VITAL SIGNS: Temperature 97.0, pulse 68, respiratory rate 16, blood pressure 191/72, oxygen saturation 93% on room air GENERAL APPEARANCE: . Lying in bed, not in distress. HEENT: Normocephalic, Pupils equal. Conjunctiva normal. JVD not raised. Mass not palpable.: RESPIRATORY: Respiratory effort normal. Lungs diminished to auscultation. CARDIOVASCULAR: First and second sounds normal. No edema. ABDOMEN: Soft. Liver and spleen not palpable. No tenderness. No mass palpable. PSYCHIATRY: Alert and oriented x3. Mood and affect normal. NEUROLOGICAL: Cranial nerves grossly intact. No facial asymmetry. Power and sensation grossly intact MUSCULOSKELETAL: Evidence of osteoarthritis INVESTIGATIONS: LABS: White blood cell count 12.2, potassium 5.5, BUN 34, creatinine 1.20, Accu- Cheks noted. TROPONIN: Less than 0.012, 0.091, 2.130 ASSESSMENT: -Acute non-ST elevated NE in a patient who presented with 2 days of not feeling well chest pressure dizziness, lightheadedness, history of myocardial infarction. -Gastrointestinal AV malformation. -Chronic congestive heart failure from systolic dysfunction, ejection fraction 45-50% from 2014 from ischemic cardiomyopathy. -Diabetes mellitus type 2 chronically on insulin. -Essential hypertension uncontrolled on presentation. -Chronic rheumatoid arthritis, -Obstructive sleep apnea, uses CPAP machine. 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 PLAN: Continue heparin drip, await additional input from cardiology, maximal medical therapy. Hyperkalemic Kayexalate provided, daily calcium supplementation held for now. Elevated kidney function is improving, we'll continue gentle hydration. Plan of care discussed with the patient the bedside she is in agreement. Discharge planning for the next 24-48 hours. We'll follow closely. SOUND EDITOR statement: Patient was seen and examined by nurse practitioner Madison Rueda and all elements of the case discussed with attending Dr. Shook
[2017-05-04] MEDS ORDERED: FUROSEMIDE 10 MG/ML 4 ML VIAL IV STA (18:39)
[2017-05-04] MEDS: SODIUM CHLORIDE 0.9% 1,000 ML IV SCH ×2 (19:28→19:42)
[2017-05-04 20:06] LABS: Glucose,Whole Blood 165 mg/dL (75-99)
--- NOTE | 2017-05-04 20:21 | PN ---
PROGRESS NOTE DATE OF SERVICE: 05/04/2017. ATTENDING NOTE: Patient seen and examined by me. I discussed with nurse practitioner Ms. Rueda. This patient admitted with chest pressure, pain with ST-segment changes. The patient has not ruled in for an acute non-Q-wave myocardial infarction, lying in bed. Currently no chest pain. EXAMINATION: Blood pressure 160/70, pulse ox 93% on 2 L. LUNGS: Clear. Cardiovascular: 1st and 2nd sounds normal. Troponin did go from 0.091 up to 2.1. Current medications include aspirin, Lipitor, beta teresa, TIFFANIE inhibitor, IV heparin. Cardiology was consulted. Dr. Hawkins. 2D echo is pending. The patient is on IV heparin. Prognosis guarded. MMODL / IJN: [id number] /
[2017-05-04] MEDS: INSULIN DETEMIR 100 UNIT/ML 10 ML VIAL SQ SCH (21:00)
[2017-05-05] MEDS: SODIUM CHLORIDE 0.9% 1,000 ML IV SCH ×2 (04:22→16:27)
[2017-05-05 04:49] LABS: Anisocytosis Slight; Basophils % (A) 0 %; Eosinophils % (A) 0 %; HGB 9.7 gm/dL (11.4-16.0); Hypochromasia Marked; Lymphocytes # (A) 2.2 k/uL (1.0-4.8); Lymphocytes % (A) 17 %; MCH 24.8 pg (25.0-35.0); MCHC 28.5 g/dL (31.0-37.0); MCV 86.8 fL (80.0-100.0); Mean Platelet Volume 8.9; Monocytes % (A) 8 %; Neutrophils % (A) 71 %; Platelet Count 318 k/uL (150-450); RBC 3.92 m/uL (3.80-5.40); RDW 16.2 % (11.5-15.5); WBC 12.7 k/uL (3.8-10.6)
[2017-05-05 04:59] LABS: Calcium 8.9 mg/dL (8.4-10.2); Potassium 4.4 mmol/L (3.5-5.1)
[2017-05-05 05:46] LABS: Glucose,Whole Blood 189 mg/dL (75-99)
[2017-05-05] MEDS: PANTOPRAZOLE 40 MG TABLET PO SCH (06:43)
[2017-05-05] MEDS: INSULIN ASPART 100 UNIT/ML 1 ML 10 ML VIAL SQ SCH ×7 (06:43→21:44)
[2017-05-05] MEDS: IPRATROPIUM-ALBUTEROL 3 ML NEB INHALATION SCH ×4 (08:09→19:06)
[2017-05-05] MEDS: amLODIPine 5 MG TAB PO SCH (09:09)
[2017-05-05] MEDS: GABAPENTIN 100 MG CAP PO SCH ×3 (09:09→21:55)
[2017-05-05] MEDS: ATORVASTATIN 40 MG TAB PO SCH (09:09)
[2017-05-05] MEDS: ALLOPURINOL 300 MG TAB PO SCH (09:09)
[2017-05-05] MEDS: ASPIRIN 81 MG PO SCH (09:09)
[2017-05-05] MEDS: CHOLECALCIFEROL 1,000 UNIT TAB PO SCH (09:09)
[2017-05-05] MEDS: METOPROLOL TARTRATE 50 MG TAB PO SCH ×2 (09:10→21:55)
[2017-05-05] MEDS: LISINOPRIL 10 MG TAB PO SCH (09:10)
--- NOTE | 2017-05-05 10:53 | P.PN ---
Subjective Progress Note Date: 05/05/17 Principal diagnosis: Acute exacerbation of COPD, acute on chronic hypoxic respiratory failure This is a very pleasant 81-year-old female patient who follows with Dr. Jose Luis vernon as her primary care physician. 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 She presented here to the emergency room yesterday after developing an episode of diaphoresis fatigue and weakness. She had some chest pressure. Did notice increasing shortness of breath more so on exertion as well. He was found to have hypoxemia which rations in the 80s and was admitted for COPD exacerbation. Chest x-ray revealed some pulmonary fibrotic changes in the bases. No consolidation. No leukocytosis. Hemoglobin was 11.1. Creatinine 1.30. ProBNP 371, troponins negative. She is seen today on the regular medical floor and consultation. She is awake and alert in no acute distress. She states she is feeling quite a bit better today are ready as compared to yesterday. Nearly back to her baseline. Her saturations have improved up into the 90s. He was initiated on IV Solu-Medrol and bronchodilators. Reevaluated today on 05/04/2017, patient is feeling a bit better, less cough and less wheezing less shortness of breath. Labs were reviewed, sugar seems high and that's because of the high-dose of Solu-Medrol that she is presently on. BUN is 34 creatinine is 1.20. Reevaluated today on 05/05/2017, patient is doing well from the pulmonary perspective, however there is a bit of a concern about her elevated troponin levels, and her EKG as well as her echocardiogram. Ration is still undergoing further cardiac testing, she may eventually require cardiac catheterization. However I was asked to today about her status of COPD, and the severity. Could not find any recent PFT done in the office in the last one year at least. Hence the patient will need to be retested, and I will try to retrieve any old remote pulmonary function tests. Presently the patient is relatively asymptomatic, but the assistant site manager is a bit concerned about her cardiac condition. Objective - Vital Signs Vital signs: Vital Signs Temp 97.5 F L 05/05/17 08:00 Pulse 80 05/05/17 08:24 Resp 16 05/05/17 08:00 BP 157/73 05/05/17 08:00 Pulse Ox 96 05/05/17 08:00 Intake & Output 05/04/17 05/05/17 05/05/17 18:59 06:59 18:59 Intake Total 236 652.963 Output Total 2100 Balance 236 -1447.037 Weight 103.2 kg Intake: Intake, IV Titration 352.963 Amount Heparin Sod,Pork in 0.45% 352.963 NaCl 25,000 unit In 0.45 % NaCl 1 500ml.bag @ 9. 434 UNITS/KG/HR 20 mls/hr IV .Q24H [facility] Rx#: [id number] Oral 236 300 Output: Urine 2100 Other: Voiding Method Toilet Bedside Commode Bedside Commode # Voids 1 2 - Exam GENERAL EXAM: Obese. Alert, active, comfortable in no apparent distress. HEAD: Normocephalic. EYES: Normal reaction of pupils, equal size. NOSE: Clear with pink turbinates. THROAT: No erythema or exudates. NECK: No masses, no JVD. CHEST: No chest wall deformity. LUNGS: Equal air entry with no crackles, wheeze, rhonchi or dullness. CVS: S1 and S2 normal with no audible murmur, regular rhythm. ABDOMEN: No hepatosplenomegaly, normal bowel sounds, no guarding or rigidity. SPINE: No scoliosis or deformity SKIN: No rashes CENTRAL NERVOUS SYSTEM: No focal deficits, tone is normal in all 4 extremities. EXTREMITIES: There is no peripheral edema. No clubbing, no cyanosis. Peripheral pulses are intact. - Labs CBC & Chem 7: 05/05/17 03:58 05/05/17 03:58 Labs: Abnormal Lab Results - Last 24 Hours (Table) 05/04/17 05/04/17 05/04/17 Range/Units 05:42 05:42 11:22 WBC 12.2 H (3.8-10.6) k/uL Hgb 10.1 L (11.4-16.0) gm/dL MCH (25.0-35.0) pg MCHC 28.4 L (31.0-37.0) g/dL RDW (11.5-15.5) % Neutrophils # 10.3 H (1.3-7.7) k/uL APTT (22.0-30.0) sec Chloride (98-107) mmol/L BUN (7-17) mg/dL Creatinine (0.52-1.04) mg/dL Glucose (74-99) mg/dL POC Glucose (mg/dL) 277 H (75-99) mg/dL Troponin I 1.300 H* (0.000-0.034) ng/mL 05/04/17 05/04/17 05/04/17 Range/Units 11:44 14:28 16:37 WBC (3.8-10.6) k/uL Hgb (11.4-16.0) gm/dL MCH (25.0-35.0) pg MCHC (31.0-37.0) g/dL RDW (11.5-15.5) % Neutrophils # (1.3-7.7) k/uL APTT 21.1 L (22.0-30.0) sec Chloride (98-107) mmol/L BUN (7-17) mg/dL Creatinine (0.52-1.04) mg/dL Glucose (74-99) mg/dL POC Glucose (mg/dL) 188 H (75-99) mg/dL Troponin I 2.130 H* (0.000-0.034) ng/mL 05/04/17 05/05/17 05/05/17 Range/Units 20:04 03:58 03:58 WBC 12.7 H (3.8-10.6) k/uL Hgb 9.7 L (11.4-16.0) gm/dL MCH 24.8 L (25.0-35.0) pg MCHC 28.5 L (31.0-37.0) g/dL RDW 16.2 H (11.5-15.5) % Neutrophils # 9.0 H (1.3-7.7) k/uL APTT (22.0-30.0) sec Chloride 108 H (98-107) mmol/L BUN 40 H (7-17) mg/dL Creatinine 1.30 H (0.52-1.04) mg/dL Glucose 184 H (74-99) mg/dL POC Glucose (mg/dL) 165 H (75-99) mg/dL Troponin I (0.000-0.034) ng/mL 05/05/17 05/05/17 Range/Units 03:58 05:42 WBC (3.8-10.6) k/uL Hgb (11.4-16.0) gm/dL MCH (25.0-35.0) pg MCHC (31.0-37.0) g/dL RDW (11.5-15.5) % Neutrophils # (1.3-7.7) k/uL APTT 41.4 H (22.0-30.0) sec Chloride (98-107) mmol/L BUN (7-17) mg/dL Creatinine (0.52-1.04) mg/dL Glucose (74-99) mg/dL POC Glucose (mg/dL) 189 H (75-99) mg/dL Troponin I (0.000-0.034) ng/mL Microbiology - Last 24 Hours (Table) 05/02/17 23:19 Blood Culture - Preliminary Blood No Growth after 48 hours Assessment and Plan Assessment: #1 Acute exacerbation of severe oxygen dependent chronic obstructive pulmonary disease. #2 Acute on chronic hypoxic respiratory failure secondary to above. #3 Morbid obesity. #4 Obstructive sleep apnea utilizing CPAP in the outpatient setting. #5 Remote history of chronic tobacco dependence. #6 Diabetes mellitus. #7 Hypertension. #8 Hyperlipidemia. #9 History of ovarian cyst adenocarcinoma status post bilateral salpingo- oophorectomy and resection of the mass performed at . #10 Postoperative pulmonary embolism treated with Xarelto. 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 #12 Chronic back pain. #13 History of gout. #14 possible acute non-ST elevation myocardial infarction, and aortic valve disease. Workup is in progress, patient is being considered for possible cardiac catheterization by cardiology. We'll try to retrieve any old pulmonary function tests done in my office, however I did not see one in the last one year. Recommendation: Continue present treatment plan, we'll continue to follow Time with Patient: Less than 30
[2017-05-05 11:35] LABS: Glucose,Whole Blood 121 mg/dL (75-99)
[2017-05-05] MEDS: HEPARIN SOD,PORK IN 0.45% NACL 25,000 UNIT in 0.45% NACL 1 500ML.BAG IV SCH (12:02)
[2017-05-05 12:46] LABS: Anisocytosis Slight; HGB 9.8 gm/dL (11.4-16.0); Hypochromasia Marked; MCH 25.4 pg (25.0-35.0); MCHC 29.8 g/dL (31.0-37.0); MCV 85.2 fL (80.0-100.0); Mean Platelet Volume 8.9; Platelet Count 343 k/uL (150-450); RBC 3.87 m/uL (3.80-5.40); RDW 16.1 % (11.5-15.5); WBC 14.8 k/uL (3.8-10.6)
--- NOTE | 2017-05-05 15:04 | PN ---
PROGRESS NOTE Mrs. Ponce is an 81-year-old female who presented with symptoms of progressive dyspnea and had vague symptoms of chest discomfort. She had minimal troponin elevation and mild transient ST-segment depression laterally. Those have improved. She had an echocardiogram done in the hospital yesterday that showed a preserved systolic function with moderate to severe aortic regurgitation. She continues to be at this time on aspirin once a day, Lipitor 40 mg daily, Lasix 20 mg twice a day, gabapentin, IV heparin, lisinopril 10 mg daily, metoprolol tartrate 50 mg twice a day. PHYSICAL EXAMINATION: Blood pressure 115/50 with a heart rate in the 60s. LUNGS: No wheezes appreciated. Heart regular rate and rhythm S1, S2. No S3 with systolic murmur heard at the base. Ejection type 3/6 mid to late-peaking. No diastolic murmur. ABDOMEN: Soft, obese, nontender. EXTREMITIES: +1 edema. LAB DATA: BUN and creatinine of 40 and 1.3, potassium 4.4, hemoglobin of 9.8. IMPRESSION: 1. Non ST-segment elevation myocardial infarction. Aortic stenosis, moderate to severe. 2. Chronic obstructive lung disease. 3. Renal failure. RECOMMENDATION: From the cardiac standpoint, I will stop her heparin at this time. Continue rest of medical regimen. Follow her renal function closely. The patient will require further evaluation including coronary angiography and transesophageal echocardiogram evaluation for aortic valve disease, but first I will obtain the input of Dr. Amaya to see the pulmonary status to guide her treatment to see if she is a candidate for any further workup. Unfortunately, in view of her history of COPD as well as the history of severe obesity, her overall prognosis is quite guarded. MMODL / IJN: [id number] /
[2017-05-05 16:44] LABS: Glucose,Whole Blood 63 mg/dL (75-99)
--- NOTE | 2017-05-05 17:14 | P.PN ---
Progress Note - Text Progress Note Date: 05/05/17 DATE OF SERVICE: 05/05/2017 PRESENTING COMPLAINT: Short of breath, chest pain HISTORY OF PRESENT ILLNESS: 81-year-old female who presented with 1 day episode of increasing shortness of breath and chest pressure going across the chest lasting for a few hours. Some dizziness and lightheadedness mild lower extremity edema, minimal cough no sputum. First troponin was negative, admitted for COPD exacerbation. Attending physician concerned regarding patient's chest pressure, repeated a second troponin and found to be elevated with EKG showing ST depression in lead 4 and 5 transferred to 6 E. selective for closer cardiac monitoring cardiology consult placed. INTERVAL HISTORY: 05/05/2017: Sitting up on the edge of the bed, has no complaints of any chest pain or pressure. Ambulates with assistance, tolerating her diet and eating 100% of her meal. Cardiology stop heparin drip, await additional input from pulmonology for possible coronary angiography with transesophageal echocardiogram patient has aortic valve disease. 05/04/2017: Sitting up on the edge of the bed, states she feels well. No chest pain or pressure since admission. Able to ambulate with assistance to and from the bathroom, was nothing by mouth overnight in anticipation for possible cardiac intervention. At the present time does not appear to be the case. Last BM prior to admission. REVIEW OF SYSTEMS: Done for constitutional ,cardiovascular, GI, pulmonary with relevant findings as above. CURRENT MEDICATIONS [place], DuoNeb, Zyloprim, Norvasc, aspirin, Lipitor, cholecalciferol, vitamin D3 , Lasix, Neurontin, heparin drip, insulin, lisinopril, Lopressor, Protonix, K Dur, normal saline. PHYSICAL EXAM VITAL SIGNS: Temperature 97.5, pulse 92, respiratory rate 16, blood pressure 157/73, oxygen saturation 96% on 2 L GENERAL APPEARANCE: Sitting up on the edge of the bed, not in distress. HEENT: Normocephalic, Pupils equal. Conjunctiva normal. JVD not raised. Mass not palpable RESPIRATORY: Respiratory effort normal. Lungs diminished to auscultation. CARDIOVASCULAR: First and second sounds normal. mild edema. ABDOMEN: Soft. Liver and spleen not palpable. No tenderness. No mass palpable. PSYCHIATRY: Alert and oriented x3. Mood and affect normal. MUSCULOSKELETAL: Evidence of osteoarthritis INVESTIGATIONS: LABS: White blood cell count 14.8, chloride 108 BUN 40, creatinine 1.30, Accu- Cheks noted. ASSESSMENT: -Acute non-ST elevated [place] in a patient who presented with 2 days of not feeling well chest pressure dizziness, lightheadedness, history of myocardial infarction. -Moderate to severe aortic stenosis in a patient who had a recent non-ST segment elevation myocardial infarction -Gastrointestinal AV malformation. -Chronic congestive heart failure from systolic dysfunction, ejection fraction 45-50% from 2014 from ischemic cardiomyopathy. -Diabetes mellitus type 2 chronically on insulin. -Essential hypertension uncontrolled on presentation. -Chronic rheumatoid arthritis, -Obstructive sleep apnea, uses CPAP machine. 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 PLAN: Await additional evaluation from Dr. Theodore regarding pulmonary status to determine if she is eligible for any kind of further cardiac workup. kidney function is worsening we'll continue gentle hydration. Plan of care discussed with the patient the bedside she is in agreement. Discharge planning for the next 24-48 hours. We'll follow closely. SUPERVISOR HOME ENERGY CONSULTANT statement: Patient was seen and examined by nurse practitioner Madison Rueda and all elements of the case discussed with attending Dr. Shook
[2017-05-05 17:16] LABS: Glucose,Whole Blood 77 mg/dL (75-99)
--- NOTE | 2017-05-05 18:22 | PN ---
PROGRESS NOTE DATE OF SERVICE: 05/05/17 ATTENDING NOTE: Patient seen and examined by me. I discussed with nurse practitioner, Umeshann. The patient is status post acute myocardial infarction. No chest pain. Some shortness of breath. Edema is present. PHYSICAL EXAMINATION: On examination, afebrile, pulse 90, respirations 16, blood pressure 157/73, pulse ox 96% on 2 L. LUNGS: Decreased breath sounds. Edema is present. CARDIOVASCULAR: First and second sounds normal. INVESTIGATIONS: White count 14.8, hemoglobin 9.8. ASSESSMENT: 1. Acute non ST elevation myocardial infarction/moderate to severe aortic stenosis, nonrheumatic. 2. Chronic congestive heart failure from systolic dysfunction, rule out acute component. PLAN: Discussed with Dr. Hawkins. He will be discussing with Dr. Amaya to see patient can have a cardiac cath from a pulmonary standpoint. In the meantime will check chest x- ray. Will change the dose of Lasix given the edema. Will change the dose of Lasix to 40 mg daily and repeat a chest x-ray. MMODL / IJN: [id number] /
--- NOTE | 2017-05-05 19:11 | XR ---
EXAMINATION TYPE: XR chest 2V DATE OF EXAM: 05/05/2017 COMPARISON: 05/02/2017 HISTORY: Shortness of breath and weakness TECHNIQUE: Frontal and lateral views of the chest are obtained. FINDINGS: Diffuse increased interstitial lung markings are similar to the prior. Bibasilar opacities obscure the hemidiaphragms. Cardiac silhouette is enlarged. Patient's chin obscures the lung apices. Mild acromioclavicular arthropathy and degenerative changes of the lumbar spine are noted. There is diffuse demineralization of the osseous structures. IMPRESSION: Diffuse interstitial prominence and reticular opacity is similar to the prior exam of 02/2018. Some of these are favored to represent underlying pulmonary fibrotic changes as no retrocard iac airspace disease is appreciated despite the bibasilar airspace disease on frontal images. Bibasil ar atelectasis and mild pulmonary vascular congestion are also suspected.
[2017-05-05 20:57] LABS: Glucose,Whole Blood 243 mg/dL (75-99)
[2017-05-05] MEDS: INSULIN DETEMIR 100 UNIT/ML 10 ML VIAL SQ SCH (21:55)
[2017-05-05] MEDS: IPRATROPIUM-ALBUTEROL 3 ML NEB INHALATION PRN (22:12)
[2017-05-06] MEDS: IPRATROPIUM-ALBUTEROL 3 ML NEB INHALATION PRN (04:35)
[2017-05-06 06:25] LABS: Glucose,Whole Blood 202 mg/dL (75-99)
[2017-05-06] MEDS: INSULIN ASPART 100 UNIT/ML 1 ML 10 ML VIAL SQ SCH ×7 (06:33→21:50)
[2017-05-06] MEDS: PANTOPRAZOLE 40 MG TABLET PO SCH (06:33)
[2017-05-06 06:55] LABS: Anisocytosis Slight; Basophils % (A) 0 %; Eosinophils # (A) 0.1 k/uL (0-0.7); Eosinophils % (A) 1 %; HCT 31.7 % (34.0-46.0); HGB 9.2 gm/dL (11.4-16.0); Hypochromasia Marked; Lymphocytes # (A) 1.7 k/uL (1.0-4.8); Lymphocytes % (A) 24 %; MCH 25.4 pg (25.0-35.0); MCHC 28.9 g/dL (31.0-37.0); MCV 87.9 fL (80.0-100.0); Mean Platelet Volume 8.8; Monocytes # (A) 0.5 k/uL (0-1.0); Monocytes % (A) 8 %; Neutrophils # (A) 4.5 k/uL (1.3-7.7); Neutrophils % (A) 63 %; Platelet Count 235 k/uL (150-450); RDW 16.2 % (11.5-15.5); WBC 7.1 k/uL (3.8-10.6)
[2017-05-06] MEDS: IPRATROPIUM-ALBUTEROL 3 ML NEB INHALATION SCH ×4 (07:08→19:11)
[2017-05-06 07:18] LABS: Calcium 8.9 mg/dL (8.4-10.2); Potassium 4.2 mmol/L (3.5-5.1)
[2017-05-06] MEDS: ASPIRIN 81 MG PO SCH (08:02)
[2017-05-06] MEDS: ATORVASTATIN 40 MG TAB PO SCH (08:02)
[2017-05-06] MEDS: LISINOPRIL 10 MG TAB PO SCH (08:03)
[2017-05-06] MEDS: GABAPENTIN 100 MG CAP PO SCH ×3 (08:03→20:46)
[2017-05-06] MEDS: CHOLECALCIFEROL 1,000 UNIT TAB PO SCH (08:03)
[2017-05-06] MEDS: amLODIPine 5 MG TAB PO SCH (08:03)
[2017-05-06] MEDS: ALLOPURINOL 300 MG TAB PO SCH (08:03)
[2017-05-06] MEDS: FUROSEMIDE 40 MG TAB PO SCH (08:03)
[2017-05-06] MEDS: METOPROLOL TARTRATE 50 MG TAB PO SCH ×2 (08:04→20:46)
--- NOTE | 2017-05-06 08:46 | ECHOF ---
Referral Reason:chf MEASUREMENTS -------- HEIGHT: 154.9 cm WEIGHT: 105.7 kg BP: 121/77 IVSd: 1.2 cm (0.6 - 1.1) LVIDd: 4.5 cm (3.9 - 5.3) LVPWd: 1.3 cm (0.6 - 1.1) IVSs: 1.5 cm LVIDs: 1.9 cm LVPWs: 1.9 cm LAESV Index (A-L): 36.20 ml/m Ao Diam: 2.0 cm (2.0 - 3.7) AV Cusp: 0.7 cm (1.5 - 2.6) LA Diam: 4.1 cm (2.7 - 3.8) MV EXCURSION: 9.371 mm (> 18.000) MV EF SLOPE: 61 mm/s (70 - 150) EPSS: 2.7 cm MV E Edi: 1.36 m/s MV DecT: 389 ms MV A Edi: 1.36 m/s MV E/A Ratio: 1.00 AV maxP.28 mmHg AV meanP.73 mmHg AR PHT: 288 ms RAP: 5.00 mmHg RVSP: 7.85 mmHg FINDINGS -------- Sinus rhythm. This was a technically adequate study. The left ventricular size is normal. There is mild concentric left ventricular hypertrophy. Overa ll left ventricular systolic function is normal with, an EF between 55 - 60 %. The right ventricle is normal in size and function. LA is moderately dilated 34-39 ml/m2 The right atrium is normal in size. Aortic valve is trileaflet and is severely thickened. There is mild aortic regurgitation. There i s [id number]-[id number] aortic stenosis present. Peak/mean gradient across the Aortic Valve is 51.28mm Hg / 31.73mmHg. Moderate mitral annular calcification present. Phgi-wu-iabbqdtf mitral regurgitation is present. The peak and mean MV gradients are 13.41mmHg 6.03mmHg as measured by doppler. Mild mitral stenosis . Mild tricuspid regurgitation present. The right ventricular systolic pressure, as measured by Doppl er, is 7.85mmHg. There is no pulmonic regurgitation present. The aortic root size is normal. There is no pericardial effusion. CONCLUSIONS -------- 1. Sinus rhythm. 2. This was a technically adequate study. 3. There is mild concentric left ventricular hypertrophy. 4. Overall left ventricular systolic function is normal with, an EF between 55 - 60 %. 5. LA is moderately dilated 34-39 ml/m2 6. Aortic valve is trileaflet and is severely thickened. 7. There is mild aortic regurgitation. 8. There is zddrriho-zt-ecxfdz aortic stenosis present. 9. Peak/mean gradient across the Aortic Valve is 51.28mmHg / 31.73mmHg. 10. Moderate mitral annular calcification present. 11. Vdwf-gr-posfbspw mitral regurgitation is present. 12. The peak and mean MV gradients are 13.41mmHg 6.03mmHg as measured by doppler. 13. Mild mitral stenosis. 14. Mild tricuspid regurgitation present. 15. The right ventricular systolic pressure, as measured by Doppler, is 7.85mmHg. 16. There is no pulmonic regurgitation present. 17. The aortic root size is normal. 18. There is no pericardial effusion. NUCLEAR TECHNICIAN: Willow Borges RDCS
[2017-05-06 11:58] LABS: Glucose,Whole Blood 190 mg/dL (75-99)
--- NOTE | 2017-05-06 15:05 | P.PN ---
Subjective Progress Note Date: 05/06/17 This is an 81-year-old female patient who presented to the hospital with symptoms of progressive dyspnea, and also had vague symptoms of chest discomfort. She had minimal troponin elevation with mild transient ST segment depression laterally which have improved. Patient did have an echocardiogram with Doppler study performed which revealed preserved systolic function with moderate to severe aortic regurgitation. Dr. Hawkins did have a lengthy discussion with the patient today regarding options of medical therapy versus proceeding with cardiac catheterization and PRATIBHA. At this time the decision is made to maximize medical therapy and see how the patient does overall. Seen and examined today, sitting up at bedside overall feeling better. Continues to have some peripheral edema. Her weight today is down 1 kg. Hemoglobin 9.2, sodium 144, potassium 4.2, BUN 35, creatinine 1.2. Objective - Vital Signs Vital signs: Vital Signs Temp 97.7 F 05/06/17 08:00 Pulse 98 05/06/17 11:35 Resp 16 05/06/17 11:35 BP 139/72 05/06/17 11:35 Pulse Ox 94 L 05/06/17 11:35 Intake & Output 05/05/17 05/06/17 05/06/17 18:59 06:59 18:59 Intake Total 857.037 350 Output Total 800 Balance 857.037 -800 350 Weight 102.7 kg Intake: Intake, IV Titration 147.037 Amount Heparin Sod,Pork in 0.45% 147.037 NaCl 25,000 unit In 0.45 % NaCl 1 500ml.bag @ 9. 434 UNITS/KG/HR 20 mls/hr IV .[facility]H [facility] Rx#: [id number] Oral 710 350 Output: Urine 800 Other: Voiding Method Bedside Commode Bedside Commode Bedside Commode # Voids 1 1 - Exam PHYSICAL EXAMINATION: HEENT: Head is atraumatic, normocephalic. Pupils equal, round. Neck is supple. There is no elevated jugular venous pressure. HEART EXAMINATION: Heart S1 and S2 systolic ejection murmur is heard CHEST EXAMINATION: Lungs reveal fine wheezing bilaterally with diminished air entry to the bases ABDOMEN: Soft, obese, nontender. Bowel sounds are heard. No organomegaly noted. EXTREMITIES: 1+ peripheral pulses with 1+o evidence of peripheral edema and no calf tenderness noted. NEUROLOGIC patient is awake, alert and oriented -3. . - Labs CBC & Chem 7: 05/06/17 06:19 05/06/17 06:19 Labs: Abnormal Lab Results - Last 24 Hours (Table) 05/05/17 05/05/17 05/06/17 Range/Units 16:42 20:55 06:19 RBC (3.80-5.40) m/uL Hgb (11.4-16.0) gm/dL Hct (34.0-46.0) % MCHC (31.0-37.0) g/dL RDW (11.5-15.5) % Chloride 108 H (98-107) mmol/L BUN 35 H (7-17) mg/dL Creatinine 1.24 H (0.52-1.04) mg/dL Glucose 217 H (74-99) mg/dL POC Glucose (mg/dL) 63 L 243 H (75-99) mg/dL 05/06/17 05/06/17 05/06/17 Range/Units 06:19 06:19 11:35 RBC 3.60 L (3.80-5.40) m/uL Hgb 9.2 L (11.4-16.0) gm/dL Hct 31.7 L (34.0-46.0) % MCHC 28.9 L (31.0-37.0) g/dL RDW 16.2 H (11.5-15.5) % Chloride (98-107) mmol/L BUN (7-17) mg/dL Creatinine (0.52-1.04) mg/dL Glucose (74-99) mg/dL POC Glucose (mg/dL) 202 H 190 H (75-99) mg/dL Microbiology - Last 24 Hours (Table) 05/02/17 23:19 Blood Culture - Preliminary Blood No Growth after 72 hours Assessment and Plan Plan: Assessment and plan #1 non-ST elevation myocardial infarction, medical therapy advised at this time. #2 aortic stenosis, moderate to severe we will treat medically at this time. #3 COPD #4 renal failure # 5 diastolic congestive heart failure acute on chronic Plan Repeat chest x-ray was performed yesterday which revealed diffuse interstitial prominence similar to the 11th, underlying pulmonary fibrotic change. Bi basilar atelectasis and mild pulmonary vascular congestion also suspected. Cardiology's perspective, we will continue current dose of by mouth Lasix along with the patient's other medications. Dr. Hawkins will have a discussion with Dr. duarte Beyer regarding the patient, at this time maximal medical therapy is advised. DNP note has been reviewed, I agree with a documented findings and plan of care. Patient was seen and examined.
--- NOTE | 2017-05-06 16:13 | P.PN ---
Subjective Progress Note Date: 05/06/17 Principal diagnosis: COPD exacerbation Progress note dated 05/06/2017 This is a 81-year-old female was initially admitted on May 03. She has a history of severe COPD exacerbation acute on chronic hypoxemic respiratory failure morbid obesity sleep apnea syndrome, currently on CPAP chronic tobacco use diabetes hypertension hyperlipidemia history of ovarian adenocarcinoma, status post bilateral salpingo-oophorectomy and resection of the mass performed to him before, postoperative pulmonary embolism GI bleed chronic back pain and gout and possible acute non-ST segment elevation myocardial infarction. Apparently cardiology has decided to treat the patient medically as opposed to doing a catheterization. Anyway the patient seemed relatively comfortable. No issues from the pulmonary standpoint. Denies any difficulty breathing coughing wheezing shortness of breath or phlegm production. He isn't coughing up any blood. No nausea vomiting or diarrhea. No chest pain or chest discomfort. Objective - Vital Signs Vital signs: Vital Signs Temp 97.7 F 05/06/17 08:00 Pulse 92 05/06/17 15:41 Resp 16 05/06/17 11:35 BP 139/72 05/06/17 11:35 Pulse Ox 94 L 05/06/17 11:35 Intake & Output 05/05/17 05/06/17 05/06/17 18:59 06:59 18:59 Intake Total 857.037 350 Output Total 800 Balance 857.037 -800 350 Weight 102.7 kg Intake: Intake, IV Titration 147.037 Amount Heparin Sod,Pork in 0.45% 147.037 NaCl 25,000 unit In 0.45 % NaCl 1 500ml.bag @ 9. 434 UNITS/KG/HR 20 mls/hr IV .Q24H [facility] Rx#: [id number] Oral 710 350 Output: Urine 800 Other: Voiding Method Bedside Commode Bedside Commode Bedside Commode # Voids 1 1 - Exam No acute distress, oriented 3. The patient is sitting at the bedside. HEENT examination is grossly unremarkable. Mucous membranes are moist. No oral lesions. Neck supple. Full range of motion. No adenopathy thyromegaly or neck vein distention. Cardiovascular examination reveals regular rhythm rate. S1-S2 normal. No S3 or S4. No discernible murmur noted. Lungs reveal clear breath sounds. Her sounds are equal bilaterally. No adventitious lung sounds including wheezes rhonchi or crackles. Abdomen soft bowel sounds are heard. No masses or tenderness. Extremities are intact. No cyanosis clubbing or edema. Skin is without rash or lesion. Neurologic examination is brief but nonfocal. - Labs CBC & Chem 7: 05/06/17 06:19 05/06/17 06:19 Labs: Abnormal Lab Results - Last 24 Hours (Table) 05/05/17 05/05/17 05/06/17 Range/Units 16:42 20:55 06:19 RBC (3.80-5.40) m/uL Hgb (11.4-16.0) gm/dL Hct (34.0-46.0) % MCHC (31.0-37.0) g/dL RDW (11.5-15.5) % Chloride 108 H (98-107) mmol/L BUN 35 H (7-17) mg/dL Creatinine 1.24 H (0.52-1.04) mg/dL Glucose 217 H (74-99) mg/dL POC Glucose (mg/dL) 63 L 243 H (75-99) mg/dL Hemoglobin A1c (4.0-6.0) % 05/06/17 05/06/17 05/06/17 Range/Units 06:19 06:19 06:19 RBC 3.60 L (3.80-5.40) m/uL Hgb 9.2 L (11.4-16.0) gm/dL Hct 31.7 L (34.0-46.0) % MCHC 28.9 L (31.0-37.0) g/dL RDW 16.2 H (11.5-15.5) % Chloride (98-107) mmol/L BUN (7-17) mg/dL Creatinine (0.52-1.04) mg/dL Glucose (74-99) mg/dL POC Glucose (mg/dL) 202 H (75-99) mg/dL Hemoglobin A1c 8.0 H (4.0-6.0) % 05/06/17 Range/Units 11:35 RBC (3.80-5.40) m/uL Hgb (11.4-16.0) gm/dL Hct (34.0-46.0) % MCHC (31.0-37.0) g/dL RDW (11.5-15.5) % Chloride (98-107) mmol/L BUN (7-17) mg/dL Creatinine (0.52-1.04) mg/dL Glucose (74-99) mg/dL POC Glucose (mg/dL) 190 H (75-99) mg/dL Hemoglobin A1c (4.0-6.0) % Microbiology - Last 24 Hours (Table) 05/02/17 23:19 Blood Culture - Preliminary Blood No Growth after 72 hours Assessment and Plan (1) Hypoxemic respiratory failure, chronic Current Visit: Yes Status: Acute Code(s): J96.11 - CHRONIC RESPIRATORY FAILURE WITH HYPOXIA SNOMED Code(s): 818661091 (2) Morbid obesity Current Visit: Yes Status: Acute Code(s): E66.01 - MORBID (SEVERE) OBESITY DUE TO EXCESS CALORIES SNOMED Code(s): 604149744 (3) Sleep apnea syndrome Current Visit: Yes Status: Acute Code(s): G47.30 - SLEEP APNEA, UNSPECIFIED SNOMED Code(s): 77346776 (4) Hypertension Current Visit: Yes Status: Acute Code(s): I10 - ESSENTIAL (PRIMARY) HYPERTENSION SNOMED Code(s): 29444677 (5) Hyperlipidemia Current Visit: Yes Status: Acute Code(s): E78.5 - HYPERLIPIDEMIA, UNSPECIFIED SNOMED Code(s): 13005913 (6) Primary ovarian adenocarcinoma Current Visit: Yes Status: Acute Code(s): C56.9 - MALIGNANT NEOPLASM OF UNSPECIFIED OVARY SNOMED Code(s): 20564923 (7) Chronic back pain Current Visit: Yes Status: Acute Code(s): M54.9 - DORSALGIA, UNSPECIFIED; G89.29 - OTHER CHRONIC PAIN SNOMED Code(s): 578025832 (8) Gout Current Visit: Yes Status: Acute Code(s): M10.9 - GOUT, UNSPECIFIED SNOMED Code(s): 15080171 (9) Acute non-ST segment elevation myocardial infarction Current Visit: Yes Status: Acute Code(s): I21.4 - NON-ST ELEVATION (NSTEMI) MYOCARDIAL INFARCTION SNOMED Code(s): 964242893 (10) COPD with exacerbation Current Visit: Yes Status: Acute Code(s): J44.1 - CHRONIC OBSTRUCTIVE PULMONARY DISEASE W (ACUTE) EXACERBATION SNOMED Code(s): 097141272101237 (11) Diabetes Current Visit: Yes Status: Acute Code(s): E11.9 - TYPE 2 DIABETES MELLITUS WITHOUT COMPLICATIONS SNOMED Code(s): 62208866 (12) Hypoxemia Current Visit: Yes Status: Acute Code(s): R09.02 - HYPOXEMIA SNOMED Code(s ): 035706782 (13) AVM (arteriovenous malformation) of colon with hemorrhage Current Visit: No Status: Acute Code(s): Q27.33 - ARTERIOVENOUS MALFORMATION OF DIGESTIVE SYSTEM VESSEL SNOMED Code(s): 559516944 (14) Acute exacerbation of chronic obstructive airways disease Current Visit: No Status: Acute Code(s): J44.1 - CHRONIC OBSTRUCTIVE PULMONARY DISEASE W (ACUTE) EXACERBATION SNOMED Code(s): 440131127 (15) Anterior myocardial infarction Current Visit: No Status: Acute Code(s): I21.09 - STEMI INVOLVING OTH CORONARY ARTERY OF ANTERIOR WALL SNOMED Code(s): 62871354 (16) Congestive heart failure Current Visit: No Status: Acute Code(s): I50.9 - HEART FAILURE, UNSPECIFIED SNOMED Code(s): 99290358 (17) Dyspnea Current Visit: No Status: Acute Code(s): R06.00 - DYSPNEA, UNSPECIFIED SNOMED Code(s): 614180331 (18) Pelvic mass in female Current Visit: No Status: Acute Priority: Medium Code(s): R19.00 - INTRA- ABD AND PELVIC SWELLING, MASS AND LUMP, UNSP SITE SNOMED Code(s): 52849964 (19) Pulmonary emboli Current Visit: No Status: Acute Priority: High Code(s): I26.99 - OTHER PULMONARY EMBOLISM WITHOUT ACUTE COR PULMONALE SNOMED Code(s): 55486285 Plan: Plan dated 05/06/2017 Apparently the plan with this patient is not to proceed with catheterization. From the pulmonary standpoint, she is doing well. The patient's overall pulmonary status is stable. We'll continue with the current medications as prescribed. No additional recommendations are made. The nurse didn't passed onto the patient that the patient was not going to be considered for catheterization at this time. Time with Patient: Less than 30
--- NOTE | 2017-05-06 16:39 | P.PN ---
Progress Note - Text Progress Note Date: 05/13/17 DATE OF SERVICE: 05/06/2017 PRESENTING COMPLAINT: Short of breath, chest pain HISTORY OF PRESENT ILLNESS: 81-year-old female who presented with 1 day episode of increasing shortness of breath and chest pressure going across the chest lasting for a few hours. Some dizziness and lightheadedness mild lower extremity edema, minimal cough no sputum. First troponin was negative, admitted for COPD exacerbation. Attending physician concerned regarding patient's chest pressure, repeated a second troponin and found to be elevated with EKG showing ST depression in lead 4 and 5 transferred to 6 E. selective for closer cardiac monitoring cardiology consult placed. INTERVAL HISTORY: 05/06/2017: Lying in bed comfortable appearing, no complaints of chest pain or pressure, no shortness of breath. Ambulance with assistance, tolerating her diet eating 100 % of her meal. Discussion was had with the patient with cardiology regarding options of medical therapy versus cardiac catheterization and PRATIBHA. Tolerating her diet eating 100% of her meals 05/05/2017: Sitting up on the edge of the bed, has no complaints of any chest pain or pressure. Ambulates with assistance, tolerating her diet and eating 100% of her meal. Cardiology stop heparin drip, await additional input from pulmonology for possible coronary angiography with transesophageal echocardiogram patient has aortic valve disease. 05/04/2017: Sitting up on the edge of the bed, states she feels well. No chest pain or pressure since admission. Able to ambulate with assistance to and from the bathroom, was nothing by mouth overnight in anticipation for possible cardiac intervention. At the present time does not appear to be the case. Last BM prior to admission. REVIEW OF SYSTEMS: Done for constitutional ,cardiovascular, GI, pulmonary with relevant findings as above. CURRENT MEDICATIONS [place], DuoNeb, Zyloprim, Norvasc, aspirin, Lipitor, cholecalciferol, vitamin D3 , Lasix, Neurontin, insulin, lisinopril, Lopressor, Protonix. PHYSICAL EXAM VITAL SIGNS: Temp temperature 97.7, pulse 96, respiratory rate 16, blood pressure 163/79, oxygen saturation 96% on room air. GENERAL APPEARANCE: Sitting up on the edge of the bed, not in distress. HEENT: Normocephalic, Pupils equal. Conjunctiva normal. JVD not raised. Mass not palpable RESPIRATORY: Respiratory effort normal. Lungs diminished to auscultation. CARDIOVASCULAR: First and second sounds normal. mild edema. ABDOMEN: Soft. Liver and spleen not palpable. No tenderness. No mass palpable. PSYCHIATRY: Alert and oriented x3. Mood and affect normal. MUSCULOSKELETAL: Evidence of osteoarthritis INVESTIGATIONS: LABS: Hemoglobin 9.2, chloride 108, BUN 35, creatinine 1.24, BNP 1670 Accu- Cheks noted. Blood cultures: No growth after 96 hours ASSESSMENT: Acute ST elevation myocardial infarction. Moderate to severe aortic stenosis nonrheumatic. Chronic gastrointestinal AV malformation Acute on chronic congestive heart failure exacerbation from systolic dysfunction ejection fraction 50% from ischemic cardiomyopathy. Diabetes mellitus type 2 chronically on insulin. Essential hypertension, uncontrolled on presentation. Chronic rheumatoid arthritis. Obstructive sleep apnea uses a CPAP machine. 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 Acute chronic exacerbation of chronic obstructive pulmonary disease chronically oxygen dependent. Exacerbation of congestive heart failure worsening PLAN: Hold lisinopril for now. Closely monitor renal function. Discussion had with patient by cardiology regarding options patient has opted for maximal medical therapy and will wait for the time being for any type of cardiac catheterization type intervention. Plan of care discussed with the patient the bedside she is in agreement. Discharge planning for the next 24-48 hours. We' ll follow closely. WATCHER LOOKOUT [employer] statement: Patient was seen and examined by nurse practitioner Madison Rueda and all elements of the case discussed with attending Dr. Shook
[2017-05-06 16:44] LABS: Glucose,Whole Blood 110 mg/dL (75-99)
--- NOTE | 2017-05-06 18:20 | PN ---
PROGRESS NOTE DATE OF SERVICE: 05/06/17. ATTENDING NOTE: Patient was seen and examined by me. Discussed with nurse practitioner Ms. Rueda. The patient is not having any more chest pain. Tolerating a diet. Daughter is at the bedside. PHYSICAL EXAMINATION: On examination, afebrile, pulse 90, respirations 16, blood pressure 116/79, pulse ox 96% on room air. Lungs fair entry. Cardiovascular: First and second sounds normal. ASSESSMENT: Acute non-Q-wave myocardial infarction, moderate to severe aortic stenosis nonrheumatic. PLAN: Continue current medication and treatment plan. At this point, it seems cardiology is planning to do a non-intervention approach. The patient has already passed 24-48 hour window post acute CO and outcomes are similar. Did discuss with the daughters at the bedside. Follow with Cardiology. MMODL / IJN: [id number] /
[2017-05-06 21:42] LABS: Glucose,Whole Blood 250 mg/dL (75-99)
[2017-05-06] MEDS: INSULIN DETEMIR 100 UNIT/ML 10 ML VIAL SQ SCH (21:51)
[2017-05-07 06:06] LABS: Basophils # (A) 0.1 k/uL (0-0.2); Basophils % (A) 1 %; Eosinophils # (A) 0.3 k/uL (0-0.7); Eosinophils % (A) 3 %; HCT 29.7 % (34.0-46.0); Hypochromasia Marked; Lymphocytes % (A) 23 %; MCH 26.3 pg (25.0-35.0); MCHC 30.2 g/dL (31.0-37.0); MCV 87.3 fL (80.0-100.0); Mean Platelet Volume 8.6; Monocytes # (A) 0.6 k/uL (0-1.0); Monocytes % (A) 7 %; Neutrophils # (A) 5.4 k/uL (1.3-7.7); Neutrophils % (A) 62 %; Platelet Count 210 k/uL (150-450); RBC 3.41 m/uL (3.80-5.40); RDW 15.9 % (11.5-15.5); WBC 8.7 k/uL (3.8-10.6)
[2017-05-07 06:19] LABS: Calcium 8.7 mg/dL (8.4-10.2); Potassium 4.4 mmol/L (3.5-5.1)
[2017-05-07] MEDS: PANTOPRAZOLE 40 MG TABLET PO SCH (06:31)
[2017-05-07] MEDS: INSULIN ASPART 100 UNIT/ML 1 ML 10 ML VIAL SQ SCH ×5 (06:32→17:10)
[2017-05-07 06:34] LABS: Glucose,Whole Blood 135 mg/dL (75-99)
[2017-05-07] MEDS: IPRATROPIUM-ALBUTEROL 3 ML NEB INHALATION SCH ×3 (08:11→16:26)
[2017-05-07] MEDS: GABAPENTIN 100 MG CAP PO SCH ×2 (08:56→15:58)
[2017-05-07] MEDS: ATORVASTATIN 40 MG TAB PO SCH (08:56)
[2017-05-07] MEDS: ALLOPURINOL 300 MG TAB PO SCH (08:56)
[2017-05-07] MEDS: FUROSEMIDE 40 MG TAB PO SCH (08:56)
[2017-05-07] MEDS: amLODIPine 5 MG TAB PO SCH (08:56)
[2017-05-07] MEDS: ASPIRIN 81 MG PO SCH (08:57)
[2017-05-07] MEDS: METOPROLOL TARTRATE 50 MG TAB PO SCH (08:57)
[2017-05-07] MEDS: CHOLECALCIFEROL 1,000 UNIT TAB PO SCH (08:57)
[2017-05-07 12:19] LABS: Glucose,Whole Blood 106 mg/dL (75-99)
--- NOTE | 2017-05-07 14:10 | P.PN ---
Subjective Progress Note Date: 05/07/17 Principal diagnosis: COPD exacerbation Progress note dated 05/06/2017 This is a 81-year-old female was initially admitted on May 03. She has a history of severe COPD exacerbation acute on chronic hypoxemic respiratory failure morbid obesity sleep apnea syndrome, currently on CPAP chronic tobacco use diabetes hypertension hyperlipidemia history of ovarian adenocarcinoma, status post bilateral salpingo-oophorectomy and resection of the mass performed to him before, postoperative pulmonary embolism GI bleed chronic back pain and gout and possible acute non-ST segment elevation myocardial infarction. Apparently cardiology has decided to treat the patient medically as opposed to doing a catheterization. Anyway the patient seemed relatively comfortable. No issues from the pulmonary standpoint. Denies any difficulty breathing coughing wheezing shortness of breath or phlegm production. He isn't coughing up any blood. No nausea vomiting or diarrhea. No chest pain or chest discomfort. Progress note dated 05/07/2017 81-year-old female who was initially admitted back on May 03. She has history of severe COPD with acute on chronic hypoxemic respiratory failure, morbid obesity, sleep apnea syndrome, chronic tobacco use, diabetes, hypertension, hyperlipidemia, ovarian adenocarcinoma, previous bilateral salpingo-oophorectomy, postoperative pulmonary embolism, GI bleed, crack chronic back pain, and gout. In addition, the patient may sustain an acute non- ST segment elevation myocardial infarction. Anyway the patient apparently is not a candidate this time for catheterization. They're to be treating her medically according to the orthodontic treatment coordinator. She feeling much much better. Would like to be discharged home. Hoping to be discharged soon. From the breathing standpoint, she is feeling much better. Much less short of breath. Occasional cough. Not producing any phlegm. Not coughing up any blood. There is no chest pain or chest discomfort. No fever chills. No nausea vomiting or diarrhea. Objective - Vital Signs Vital signs: Vital Signs Temp 97.8 F 05/07/17 08:00 Pulse 76 05/07/17 12:49 Resp 16 05/07/17 08:00 BP 175/69 05/07/17 08:00 Pulse Ox 94 L 05/07/17 04:00 Intake & Output 05/06/17 05/07/17 05/07/17 18:59 06:59 18:59 Intake Total 350 600 Output Total 1400 Balance 350 -800 Weight 102.7 kg Intake: Oral 350 600 Output: Urine 1400 Other: Voiding Method Bedside Commode Toilet Toilet # Voids 1 0 - Exam No acute distress, oriented 3. The patient is sitting at the bedside. HEENT examination is grossly unremarkable. Mucous membranes are moist. No oral lesions. Neck supple. Full range of motion. No adenopathy thyromegaly or neck vein distention. Cardiovascular examination reveals regular rhythm rate. S1-S2 normal. No S3 or S4. No discernible murmur noted. Lungs reveal clear breath sounds. Her sounds are equal bilaterally. No adventitious lung sounds including wheezes rhonchi or crackles. Abdomen soft bowel sounds are heard. No masses or tenderness. Extremities are intact. No cyanosis clubbing or edema. Skin is without rash or lesion. Neurologic examination is brief but nonfocal. - Labs CBC & Chem 7: 05/07/17 05:45 05/07/17 05:45 Labs: Abnormal Lab Results - Last 24 Hours (Table) 05/06/17 05/06/17 05/06/17 Range/Units 06:19 16:37 21:41 RBC (3.80-5.40) m/uL Hgb (11.4-16.0) gm/dL Hct (34.0-46.0) % MCHC (31.0-37.0) g/dL RDW (11.5-15.5) % BUN (7-17) mg/dL Creatinine (0.52-1.04) mg/dL Glucose (74-99) mg/dL POC Glucose (mg/dL) 110 H 250 H (75-99) mg/dL Hemoglobin A1c 8.0 H (4.0-6.0) % 05/07/17 05/07/17 05/07/17 Range/Units 05:45 05:45 06:31 RBC 3.41 L (3.80-5.40) m/uL Hgb 9.0 L (11.4-16.0) gm/dL Hct 29.7 L (34.0-46.0) % MCHC 30.2 L (31.0-37.0) g/dL RDW 15.9 H (11.5-15.5) % BUN 38 H (7-17) mg/dL Creatinine 1.40 H (0.52-1.04) mg/dL Glucose 132 H (74-99) mg/dL POC Glucose (mg/dL) 135 H (75-99) mg/dL Hemoglobin A1c (4.0-6.0) % 05/07/17 Range/Units 12:02 RBC (3.80-5.40) m/uL Hgb (11.4-16.0) gm/dL Hct (34.0-46.0) % MCHC (31.0-37.0) g/dL RDW (11.5-15.5) % BUN (7-17) mg/dL Creatinine (0.52-1.04) mg/dL Glucose (74-99) mg/dL POC Glucose (mg/dL) 106 H (75-99) mg/dL Hemoglobin A1c (4.0-6.0) % Microbiology - Last 24 Hours (Table) 05/02/17 23:19 Blood Culture - Preliminary Blood No Growth after 96 hours Assessment and Plan (1) Hypoxemic respiratory failure, chronic Current Visit: Yes Status: Acute Code(s): J96.11 - CHRONIC RESPIRATORY FAILURE WITH HYPOXIA SNOMED Code(s): 949209914 (2) Morbid obesity Current Visit: Yes Status: Acute Code(s): E66.01 - MORBID (SEVERE) OBESITY DUE TO EXCESS CALORIES SNOMED Code(s): 553123121 (3) Sleep apnea syndrome Current Visit: Yes Status: Acute Code(s): G47.30 - SLEEP APNEA, UNSPECIFIED SNOMED Code(s): 26985043 (4) Hypertension Current Visit: Yes Status: Acute Code(s): I10 - ESSENTIAL (PRIMARY) HYPERTENSION SNOMED Code(s): 25813610 (5) Hyperlipidemia Current Visit: Yes Status: Acute Code(s): E78.5 - HYPERLIPIDEMIA, UNSPECIFIED SNOMED Code(s): 60969222 (6) Primary ovarian adenocarcinoma Current Visit: Yes Status: Acute Code(s): C56.9 - MALIGNANT NEOPLASM OF UNSPECIFIED OVARY SNOMED Code(s): 01847809 (7) Chronic back pain Current Visit: Yes Status: Acute Code(s): M54.9 - DORSALGIA, UNSPECIFIED; G89.29 - OTHER CHRONIC PAIN SNOMED Code(s): 883363681 (8) Gout Current Visit: Yes Status: Acute Code(s): M10.9 - GOUT, UNSPECIFIED SNOMED Code(s): 87089386 (9) Acute non-ST segment elevation myocardial infarction Current Visit: Yes Status: Acute Code(s): I21.4 - NON-ST ELEVATION (NSTEMI) MYOCARDIAL INFARCTION SNOMED Code(s): 698503857 (10) COPD with exacerbation Current Visit: Yes Status: Acute Code(s): J44.1 - CHRONIC OBSTRUCTIVE PULMONARY DISEASE W (ACUTE) EXACERBATION SNOMED Code(s): 835228969705503 (11) Diabetes Current Visit: Yes Status: Acute Code(s): E11.9 - TYPE 2 DIABETES MELLITUS WITHOUT COMPLICATIONS SNOMED Code(s): 30381164 (12) Hypoxemia Current Visit: Yes Status: Acute Code(s): R09.02 - HYPOXEMIA SNOMED Code(s ): 181312912 (13) AVM (arteriovenous malformation) of colon with hemorrhage Current Visit: No Status: Acute Code(s): Q27.33 - ARTERIOVENOUS MALFORMATION OF DIGESTIVE SYSTEM VESSEL SNOMED Code(s): 751175784 (14) Acute exacerbation of chronic obstructive airways disease Current Visit: No Status: Acute Code(s): J44.1 - CHRONIC OBSTRUCTIVE PULMONARY DISEASE W (ACUTE) EXACERBATION SNOMED Code(s): 839143594 (15) Anterior myocardial infarction Current Visit: No Status: Acute Code(s): I21.09 - STEMI INVOLVING OTH CORONARY ARTERY OF ANTERIOR WALL SNOMED Code(s): 15721529 (16) Congestive heart failure Current Visit: No Status: Acute Code(s): I50.9 - HEART FAILURE, UNSPECIFIED SNOMED Code(s): 50450543 (17) Dyspnea Current Visit: No Status: Acute Code(s): R06.00 - DYSPNEA, UNSPECIFIED SNOMED Code(s): 864391543 (18) Pelvic mass in female Current Visit: No Status: Acute Priority: Medium Code(s): R19.00 - INTRA- ABD AND PELVIC SWELLING, MASS AND LUMP, UNSP SITE SNOMED Code(s): 90523422 (19) Pulmonary emboli Current Visit: No Status: Acute Priority: High Code(s): I26.99 - OTHER PULMONARY EMBOLISM WITHOUT ACUTE COR PULMONALE SNOMED Code(s): 56214870 Plan: Plan dated 05/06/2017 Apparently the plan with this patient is not to proceed with catheterization. From the pulmonary standpoint, she is doing well. The patient's overall pulmonary status is stable. We'll continue with the current medications as prescribed. No additional recommendations are made. The nurse didn't passed onto the patient that the patient was not going to be considered for catheterization at this time. Plan dated 05/07/2017 The patient is doing well. Her breathing is much improved. Much less shortness of breath. The patient states her cough is much improved. Not producing any phlegm. She is a bit short of breath with exertion. Discharge relatively soon. Not sure when that might be. We'll continue to follow. For now, cardiology has no plans for catheterization. Time with Patient: Less than 30
[2017-05-07 14:54] VITALS: PULSE 74
--- NOTE | 2017-05-07 15:31 | P.PN ---
Subjective Progress Note Date: 05/07/17 This is an 81-year-old female patient who presented to the hospital with symptoms of progressive dyspnea, and also had vague symptoms of chest discomfort. She had minimal troponin elevation with mild transient ST segment depression laterally which have improved. Patient did have an echocardiogram with Doppler study performed which revealed preserved systolic function with moderate to severe aortic regurgitation. Dr. Hawkins did have a lengthy discussion with the patient today regarding options of medical therapy versus proceeding with cardiac catheterization and PRATIBHA. At this time the decision is made to maximize medical therapy and see how the patient does overall. Seen and examined today, sitting up at bedside overall feeling better. Continues to have some peripheral edema. Her weight today is down 1 kg. Hemoglobin 9.2, sodium 144, potassium 4.2, BUN 35, creatinine 1.2. 05/07 2017 A shunt seen and examined this morning, breathing is stable, she has been up ambulating without any difficulty. Continues to have mild peripheral edema that overall significantly improved. Objective - Vital Signs Vital signs: Vital Signs Temp 97.7 F 05/07/17 12:00 Pulse 76 05/07/17 12:49 Resp 16 05/07/17 12:00 BP 138/65 05/07/17 12:00 Pulse Ox 92 L 05/07/17 12:00 Intake & Output 05/06/17 05/07/17 05/07/17 18:59 06:59 18:59 Intake Total 350 600 Output Total 1400 Balance 350 -800 Weight 102.7 kg Intake: Oral 350 600 Output: Urine 1400 Other: Voiding Method Bedside Commode Toilet Toilet # Voids 1 0 - Exam PHYSICAL EXAMINATION: HEENT: Head is atraumatic, normocephalic. Pupils equal, round. Neck is supple. There is no elevated jugular venous pressure. HEART EXAMINATION: Heart S1 and S2 systolic ejection murmur is heard CHEST EXAMINATION: Lungs reveal improvement of air entry to the bases. ABDOMEN: Soft, obese, nontender. Bowel sounds are heard. No organomegaly noted. EXTREMITIES: 1+ peripheral pulses with trace evidence of peripheral edema and no calf tenderness noted. NEUROLOGIC patient is awake, alert and oriented -3. . - Labs CBC & Chem 7: 05/07/17 05:45 05/07/17 05:45 Labs: Abnormal Lab Results - Last 24 Hours (Table) 05/06/17 05/06/17 05/06/17 Range/Units 06:19 16:37 21:41 RBC (3.80-5.40) m/uL Hgb (11.4-16.0) gm/dL Hct (34.0-46.0) % MCHC (31.0-37.0) g/dL RDW (11.5-15.5) % BUN (7-17) mg/dL Creatinine (0.52-1.04) mg/dL Glucose (74-99) mg/dL POC Glucose (mg/dL) 110 H 250 H (75-99) mg/dL Hemoglobin A1c 8.0 H (4.0-6.0) % 05/07/17 05/07/17 05/07/17 Range/Units 05:45 05:45 06:31 RBC 3.41 L (3.80-5.40) m/uL Hgb 9.0 L (11.4-16.0) gm/dL Hct 29.7 L (34.0-46.0) % MCHC 30.2 L (31.0-37.0) g/dL RDW 15.9 H (11.5-15.5) % BUN 38 H (7-17) mg/dL Creatinine 1.40 H (0.52-1.04) mg/dL Glucose 132 H (74-99) mg/dL POC Glucose (mg/dL) 135 H (75-99) mg/dL Hemoglobin A1c (4.0-6.0) % 05/07/17 Range/Units 12:02 RBC (3.80-5.40) m/uL Hgb (11.4-16.0) gm/dL Hct (34.0-46.0) % MCHC (31.0-37.0) g/dL RDW (11.5-15.5) % BUN (7-17) mg/dL Creatinine (0.52-1.04) mg/dL Glucose (74-99) mg/dL POC Glucose (mg/dL) 106 H (75-99) mg/dL Hemoglobin A1c (4.0-6.0) % Microbiology - Last 24 Hours (Table) 05/02/17 23:19 Blood Culture - Preliminary Blood No Growth after 96 hours Assessment and Plan Plan: Assessment and plan #1 non-ST elevation myocardial infarction, medical therapy advised at this time. #2 aortic stenosis, moderate to severe we will treat medically at this time. #3 COPD #4 renal failure # 5 diastolic congestive heart failure acute on chronic Plan From cardiology's perspective, patient may be able to be discharged home today. We will make her a follow-up appointment to see Dr. Leon in the office post discharge. DNP note has been reviewed, I agree with a documented findings and plan of care. Patient was seen and examined.
[2017-05-07 17:00] LABS: Glucose,Whole Blood 79 mg/dL (75-99)
[2017-05-07 17:41] VITALS: BP 170/68; RESP 14; TEMP 97.3
--- NOTE | 2017-05-08 05:57 | DS ---
DISCHARGE SUMMARY DATE OF SERVICE: 05/07/2017 ATTENDING NOTE: The patient was seen and examined by me. I discussed with nurse practitioner, Ms. Rueda. Patient doing well. No chest pain or shortness of breath. ON EXAM: LUNGS: Slight decreased breath sounds. CARDIOVASCULAR: First and second sounds normal. The patient is stable to be discharged home. FINAL DIAGNOSES: 1. Acute non ST elevation myocardial infarction, present on admission. 2. Moderate to severe aortic stenosis. The patient to be discharged home. Care was discussed with the patient. Cleared by Cardiology and Pulmonary. Discharge discussion and discharge planning more than 35 minutes. MMODL / IJN: [id number] /
--- NOTE | 2017-05-09 05:58 | DS ---
DISCHARGE SUMMARY DATE OF ADMISSION: 05/02/17. DATE OF DISCHARGE: 05/07/17. FINAL DIAGNOSES: 1. Acute ST-elevation myocardial infarction. 2. Moderate to severe aortic stenosis, nonrheumatic. 3. Chronic gastrointestinal AV malformation. 4. Acute on chronic congestive heart failure exacerbation from systolic dysfunction ejection fraction 50% from ischemic cardiomyopathy. 5. Diabetes mellitus type 2, chronically on insulin. 6. Essential hypertension, uncontrolled on presentation. 7. Chronic rheumatoid arthritis. 8. Obstructive sleep apnea uses CPAP machine. 9. 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 10.Acute exacerbation of chronic obstructive pulmonary disease, chronically oxygen dependent. 11.Exacerbation of congestive heart failure. Doing better at the time of discharge. 12. CONSULTATION: Dr. Amaya from Pulmonary, Dr. Hawkins from Cardiology. HOSPITAL COURSE: This patient presented with chest pressure, ruled in for an acute non-Q-wave myocardial infarction. Given her pulmonary status, decided to manage the patient medically. 2D echo showed EF around 50%. EXAM: Lungs decreased breath sounds. Some edema. Psych AO x3. The patient BUN and creatinine is 38/1.40, hemoglobin is 9. DISCHARGE MEDICATIONS: 1. Allopurinol 300 mg p.o. daily p.r.n. 2. Lipitor 40 mg p.o. daily. 3. Neurontin 100 mg p.o. t.i.d. 4. Lopressor 50 mg p.o. b.i.d. 5. Ventolin 2.5 q.6h p.r.n. 6. Prilosec 20 mg with breakfast. 7. Vitamin D3 4000 units p.o. daily. 8. Abiquiu 7.5 one tab p.o. q.i.d. p.r.n. 9. Humalog 15 units with breakfast, 17 with lunch, 17 with supper. 10.Ventolin inhaler 2 puffs q.6h p.r.n. 11.Vasotec 5 mg p.o. daily. 12.Lasix 40 mg p.o. daily. 13.Potassium 20 mEq p.o. daily. 14.Norvasc 5 mg p.o. daily. 15.Aspirin 81 mg p.o. daily. 16.Lantus 13 units subcu q.h.s. 17.DuoNeb q8. Follow with Dr. Amaya on May 10, 2017. Follow with Dr. Leon 05/09/2017. Copy to Dr. Amaya. MMODL / IJN: [id number] /
--- NOTE | 2017-05-09 09:06 | P.PN ---
Progress Note - Text Progress Note Date: 05/07/17 DATE OF SERVICE: 05/06/2017 PRESENTING COMPLAINT: Short of breath, chest pain HISTORY OF PRESENT ILLNESS: 81-year-old female who presented with 1 day episode of increasing shortness of breath and chest pressure going across the chest lasting for a few hours. Some dizziness and lightheadedness mild lower extremity edema, minimal cough no sputum. First troponin was negative, admitted for COPD exacerbation. Attending physician concerned regarding patient's chest pressure, repeated a second troponin and found to be elevated with EKG showing ST depression in lead 4 and 5 transferred to 6 E. selective for closer cardiac monitoring cardiology consult placed. INTERVAL HISTORY: 05/06/2017: Lying in bed comfortable appearing, no complaints of chest pain or pressure, no shortness of breath. Ambulance with assistance, tolerating her diet eating 100 % of her meal. Discussion was had with the patient with cardiology regarding options of medical therapy versus cardiac catheterization and PRATIBHA. Tolerating her diet eating 100% of her meals 05/05/2017: Sitting up on the edge of the bed, has no complaints of any chest pain or pressure. Ambulates with assistance, tolerating her diet and eating 100% of her meal. Cardiology stop heparin drip, await additional input from pulmonology for possible coronary angiography with transesophageal echocardiogram patient has aortic valve disease. 05/04/2017: Sitting up on the edge of the bed, states she feels well. No chest pain or pressure since admission. Able to ambulate with assistance to and from the bathroom, was nothing by mouth overnight in anticipation for possible cardiac intervention. At the present time does not appear to be the case. Last BM prior to admission. REVIEW OF SYSTEMS: Done for constitutional ,cardiovascular, GI, pulmonary with relevant findings as above. CURRENT MEDICATIONS [place], DuoNeb, Zyloprim, Norvasc, aspirin, Lipitor, cholecalciferol, vitamin D3 , Lasix, Neurontin, insulin, lisinopril, Lopressor, Protonix. PHYSICAL EXAM VITAL SIGNS: Temp temperature 97.7, pulse 96, respiratory rate 16, blood pressure 163/79, oxygen saturation 96% on room air. GENERAL APPEARANCE: Sitting up on the edge of the bed, not in distress. HEENT: Normocephalic, Pupils equal. Conjunctiva normal. JVD not raised. Mass not palpable RESPIRATORY: Respiratory effort normal. Lungs diminished to auscultation. CARDIOVASCULAR: First and second sounds normal. mild edema. ABDOMEN: Soft. Liver and spleen not palpable. No tenderness. No mass palpable. PSYCHIATRY: Alert and oriented x3. Mood and affect normal. MUSCULOSKELETAL: Evidence of osteoarthritis INVESTIGATIONS: LABS: Hemoglobin 9.2, chloride 108, BUN 35, creatinine 1.24, BNP 1670 Accu- Cheks noted. Blood cultures: No growth after 96 hours ASSESSMENT: Acute ST elevation myocardial infarction. Moderate to severe aortic stenosis nonrheumatic. Chronic gastrointestinal AV malformation Acute on chronic congestive heart failure exacerbation from systolic dysfunction ejection fraction 50% from ischemic cardiomyopathy. Diabetes mellitus type 2 chronically on insulin. Essential hypertension, uncontrolled on presentation. Chronic rheumatoid arthritis. Obstructive sleep apnea uses a CPAP machine. 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 Acute chronic exacerbation of chronic obstructive pulmonary disease chronically oxygen dependent. Exacerbation of congestive heart failure improving PLAN: Hold lisinopril for now. Closely monitor renal function. Discussion had with patient by cardiology regarding options patient has opted for maximal medical therapy and will wait for the time being for any type of cardiac catheterization type intervention. Plan of care discussed with the patient the bedside she is in agreement. Discharge planning for the next 24-48 hours. We' ll follow closely. PRESENTATION SPECIALIST statement: Patient was seen and examined by nurse practitioner Madison Rueda and all elements of the case discussed with attending Dr. Shook
--- NOTE | 2017-06-10 19:08 | DS ---
DISCHARGE SUMMARY ADDENDUM/CORRECTION TO DISCHARGE SUMMARY: FINAL DIAGNOSIS: Correction. #1 should read acute non-ST elevation myocardial infarction. This is not acute ST elevation myocardial infarction. MMODL / IJN: [id number] /
== END 2017-05-07 18:00 | disposition home or self-care (01) | DRG 280 ==
LOC: EC 22:48 → 5MS5E 05-03 01:53 → 6SEL 05-03 21:55
PROVIDERS: ADMIT Hospitalist; ATTEND Hospitalist
DX: I21.4 Non-ST elevation (NSTEMI) myocardial infarction (principal); J96.21 Acute and chronic respiratory failure with hypoxia; I50.23 Acute on chronic systolic (congestive) heart failure; Z68.41 Body mass index [BMI] 40.0-44.9, adult; I13.0 Hypertensive heart and chronic kidney disease with heart failure and stage 1 through stage 4 chronic kidney disease, or unspecified chronic kidney disease; J44.1 Chronic obstructive pulmonary disease with (acute) exacerbation; E11.21 Type 2 diabetes mellitus with diabetic nephropathy; Z99.81 Dependence on supplemental oxygen; E11.22 Type 2 diabetes mellitus with diabetic chronic kidney disease; E87.5 Hyperkalemia; E66.01 Morbid (severe) obesity due to excess calories; I35.0 Nonrheumatic aortic (valve) stenosis; N18.3 Chronic kidney disease, stage 3 (moderate); M06.9 Rheumatoid arthritis, unspecified; I25.5 Ischemic cardiomyopathy; G47.33 Obstructive sleep apnea (adult) (pediatric); M19.91 Primary osteoarthritis, unspecified site; K55.20 Angiodysplasia of colon without hemorrhage; I25.2 Old myocardial infarction; G89.29 Other chronic pain; M54.9 Dorsalgia, unspecified; M10.9 Gout, unspecified; H40.9 Unspecified glaucoma; E78.5 Hyperlipidemia, unspecified; Z79.4 Long term (current) use of insulin; Z79.899 Other long term (current) drug therapy; Z86.711 Personal history of pulmonary embolism; Z85.43 Personal history of malignant neoplasm of ovary; Z90.721 Acquired absence of ovaries, unilateral; Z90.79 Acquired absence of other genital organ(s); Z90.710 Acquired absence of both cervix and uterus; Z92.3 Personal history of irradiation; Z87.891 Personal history of nicotine dependence; Z87.01 Personal history of pneumonia (recurrent)
CPT/HCPCS: 36415; 71046; 80048; 80053; 82550; 82553; 83036; 83735; 83880; 84484; 85025; 85027; 85610; 85730; 87040; 93005; 93306; 94640; 96361; 96365; 96375; 99285

== ENCOUNTER → 2017-05-14 | Outpatient (CLI) | payer MEDICARE ==
[2017-05-14 13:05] LABS: Calcium 9.2 mg/dL (8.4-10.2); Potassium 4.5 mmol/L (3.5-5.1)
== END | disposition home or self-care (01) ==
LOC: LABWHC1 12:15
PROVIDERS: ATTEND Internal Medicine Cardiovascular Disease
DX: I50.9 Heart failure, unspecified (principal)
CPT/HCPCS: 36415; 80048

== ENCOUNTER 2017-08-19 14:56 | Inpatient (IN) | payer MEDICARE ==
[~2017-08-19 14:56] MED LIST: EPINEPHrine 10 ML SYRINGE (0.1 MG/ML) ONE
[2017-08-19] MEDS ORDERED: FUROSEMIDE 10 MG/ML 4 ML VIAL IV STA ×2 (15:01→23:26)
[2017-08-19] MEDS ORDERED: methylPREDNISolone SOD SUCCI 125 MG/2 ML VIAL IV STA (15:01)
[2017-08-19] MEDS ORDERED: IPRATROPIUM-ALBUTEROL 3 ML NEB INHALATION STA ×2 (15:01→17:34)
--- NOTE | 2017-08-19 15:05 | ED ---
SOB HPI - General Stated Complaint: Diff Breathing Time Seen by Provider: 08/19/17 14:56 Source: EMS, RN notes reviewed, old records reviewed Mode of arrival: EMS - History of Present Illness Initial Comments: This 81-year-old female history of COPD and CHF who states she's had progressively worsening shortness of breath for the past 2 days she barely is on 2 L of home oxygen but does have a 50 foot long oxygen tube. She was noted have a rather low pulse ox by EMS when she exerted herself to walk to the ambulance [facility] she desaturated down into the 80s. She denies any chest pain fevers chills sweats she does have orthopnea. He also has had increased edema to her lower extremities and states her beltline feels tighter. This all over last 2 days. No other current complaints no other modifying factors at this time - Related Data Home Medications Medication Instructions Recorded Confirmed Atorvastatin Calcium [Lipitor] 40 mg PO DAILY 10/12/13 08/19/17 Gabapentin [Neurontin] 100 mg PO TID 10/12/13 08/19/17 Metoprolol Tartrate [Lopressor] 50 mg PO BID 10/12/13 08/19/17 Albuterol Nebulized [Ventolin 2.5 mg INHALATION RT-Q6H PRN 12/08/13 08/19/17 Nebulized] Hydrocodone/Acetaminophen 1 tab PO QID PRN 04/29/14 08/19/17 [Hydrocodone-Acetamin 7.5-325] Albuterol Inhaler [Ventolin Hfa 1 - 2 puff INHALATION RT-Q6H PRN 05/03/17 Inhaler] Furosemide [Lasix] 40 mg PO DAILY 05/03/17 08/19/17 Potassium Chloride ER [K-Dur 10] 20 meq PO DAILY 05/03/17 08/19/17 amLODIPine [Norvasc] 5 mg PO DAILY 05/03/17 08/19/17 C,E,Zinc,Copper 11/Lpcrf3h/Lut 1 cap PO DAILY 08/19/17 08/19/17 [Ocuvite Adult 50 Plus Softgel] Insulin Aspart [Novolog Flexpen] 15 unit SQ PC-BRKFST 08/19/17 08/19/17 Insulin Aspart [Novolog Flexpen] 17 unit SQ PC-LUNCH 08/19/17 08/19/17 Insulin Aspart [Novolog Flexpen] 17 unit SQ PC-SUPPER 08/19/17 08/19/17 Latanoprost Ophth [Xalatan 0.005%] 1 drops BOTH EYES DAILY 08/19/17 08/19/17 Lisinopril [Zestril] 10 mg PO DAILY 08/19/17 08/19/17 Previous Rx's Medication Instructions Recorded Omeprazole [PriLOSEC] 20 mg PO AC-BRKFST #30 capsule. 12/11/13 Aspirin 81 mg PO DAILY chew 05/07/17 Insulin Glargine [Lantus] 30 units SQ HS #0 05/07/17 Ipratropium-Albuterol Nebulize 3 ml INHALATION RT-Q8H #90 05/07/17 [Duoneb 0.5 mg-3 mg/3 ml Soln] ampul.neb Allergies Allergy/AdvReac Type Severity Reaction Status Date / Time No Known Allergies Allergy Verified 08/19/17 15:47 Review of Systems ROS Statement: Those systems with pertinent positive or pertinent negative responses have been documented in the HPI. ROS Other: All systems not noted in ROS Statement are negative. Past Medical History Past Medical History: Asthma, Cancer, Heart Failure, COPD, Diabetes Mellitus, GI Bleed, Hyperlipidemia, Hypertension, Osteoarthritis (OA), Pneumonia, Pulmonary Embolus (PE), Rheumatoid Arthritis (RA), Sleep Apnea/CPAP/BIPAP Additional Past Medical History / Comment(s): sleep apnea ,glaucoma, back pain History of Any Multi-Drug Resistant Organisms: None Reported Past Surgical History: Bowel Resection, Breast Surgery, Ear Surgery, Hysterectomy Additional Past Surgical History / Comment(s): Left breast lumpectomy 1989, [facility] node removal, status post radiation, abd mass removed november of 2013 Past Anesthesia/Blood Transfusion Reactions: No Reported Reaction Past Psychological History: No Psychological Hx Reported Additional Psychological History / Comment(s): Lives alone. Meals on Wheels. Daughter lives close by and does help. Smoking Status: Former smoker Past Alcohol Use History: None Reported Past Drug Use History: None Reported - Past Family History Mother Family Medical History: Cancer General Exam - General Exam Comments Initial Comments: This is a well-developed well-nourished awake alert oriented 3 female Limitations: no limitations General appearance: alert, anxious, in distress Head exam: Present: atraumatic, normocephalic, normal inspection Eye exam: Present: normal appearance, PERRL, EOMI. Absent: scleral icterus, conjunctival injection, periorbital swelling ENT exam: Present: normal exam, mucous membranes moist Neck exam: Present: normal inspection. Absent: tenderness, meningismus, lymphadenopathy Respiratory exam: Present: wheezes, accessory muscle use, decreased breath sounds Cardiovascular Exam: Present: regular rate, normal rhythm, normal heart sounds. Absent: systolic murmur, diastolic murmur, rubs, gallop, clicks GI/Abdominal exam: Present: soft, normal bowel sounds. Absent: distended, tenderness, guarding, rebound, rigid Extremities exam: Present: normal inspection, full ROM, normal capillary refill , pedal edema. Absent: tenderness, joint swelling, calf tenderness Back exam: Present: normal inspection Neurological exam: Present: alert, oriented X3, CN II-XII intact Psychiatric exam: Present: normal affect, normal mood Skin exam: Present: warm, dry, intact, normal color. Absent: rash Course Vital Signs 08/19/17 08/19/17 08/19/17 15:08 15:09 15:38 Temperature 98.4 F Pulse Rate 73 78 Respiratory 18 Rate Blood Pressure 151/63 O2 Sat by Pulse 87 L 91 L Oximetry 08/19/17 08/19/17 15:43 16:13 Temperature Pulse Rate 68 63 Respiratory 18 Rate Blood Pressure 145/69 O2 Sat by Pulse 90 L Oximetry - Reevaluation(s) Reevaluation #1: 08/19/17 17:18 Reevaluation after initial treatment reveals some improvement in the patient's breath however. Reevaluation #2: 08/19/17 17:18 I did perform a rectal exam on the patient with Gayla the nurse present and is heme positive dark colored stool Medical Decision Making - Medical Decision Making I did discuss findings the patient family patient be admitted with continued inpatient treatment for dyspnea blood transfusion CHF - Lab Data Result diagrams: 08/19/17 15:14 08/19/17 15:14 Lab Results 08/19/17 08/19/17 08/19/17 Range/Units 15:14 15:14 15:14 WBC 11.9 H (3.8-10.6) k/uL RBC 3.35 L (3.80-5.40) m/uL Hgb 6.7 L* (11.4-16.0) gm/dL Hct 25.0 L (34.0-46.0) % MCV 74.6 L (80.0-100.0) fL MCH 20.2 L (25.0-35.0) pg MCHC 27.0 L (31.0-37.0) g/dL RDW 15.6 H (11.5-15.5) % Plt Count 393 (150-450) k/uL Neutrophils % 68 % Lymphocytes % 20 % Monocytes % 6 % Eosinophils % 2 % Basophils % 1 % Neutrophils # 8.0 H (1.3-7.7) k/uL Lymphocytes # 2.4 (1.0-4.8) k/uL Monocytes # 0.7 (0-1.0) k/uL Eosinophils # 0.2 (0-0.7) k/uL Basophils # 0.1 (0-0.2) k/uL Hypochromasia Marked Poikilocytosis Slight Microcytosis Slight PT (9.0-12.0) sec INR (<1.2) APTT (22.0-30.0) sec Sodium 144 (137-145) mmol/L Potassium 4.6 (3.5-5.1) mmol/L Chloride 106 (98-107) mmol/L Carbon Dioxide 22 (22-30) mmol/L Anion Gap 16 mmol/L BUN 43 H (7-17) mg/dL Creatinine 1.40 H (0.52-1.04) mg/dL Est GFR (CKD-EPI)AfAm 41 (>60 ml/min/1.73 sqM) Est GFR (CKD-EPI)NonAf 36 (>60 ml/min/1.73 sqM) Glucose 187 H (74-99) mg/dL Calcium 9.5 (8.4-10.2) mg/dL Magnesium 2.0 (1.6-2.3) mg/dL Total Bilirubin 0.4 (0.2-1.3) mg/dL AST 18 (14-36) U/L ALT 19 (9-52) U/L Alkaline Phosphatase 106 (38-126) U/L Total Creatine Kinase 36 (30-135) U/L CK-MB (CK-2) 0.4 (0.0-2.4) ng/mL CK-MB (CK-2) Rel Index 1.1 Troponin I 0.022 (0.000-0.034) ng/mL NT-Pro-B Natriuret Pep pg/mL Total Protein 6.5 (6.3-8.2) g/dL Albumin 3.9 (3.5-5.0) g/dL Stool Occult Blood (Negative) 08/19/17 08/19/17 08/19/17 Range/Units 15:14 15:14 16:30 WBC (3.8-10.6) k/uL RBC (3.80-5.40) m/uL Hgb (11.4-16.0) gm/dL Hct (34.0-46.0) % MCV (80.0-100.0) fL MCH (25.0-35.0) pg MCHC (31.0-37.0) g/dL RDW (11.5-15.5) % Plt Count (150-450) k/uL Neutrophils % % Lymphocytes % % Monocytes % % Eosinophils % % Basophils % % Neutrophils # (1.3-7.7) k/uL Lymphocytes # (1.0-4.8) k/uL Monocytes # (0-1.0) k/uL Eosinophils # (0-0.7) k/uL Basophils # (0-0.2) k/uL Hypochromasia Poikilocytosis Microcytosis PT 9.7 (9.0-12.0) sec INR 1.0 (<1.2) APTT 20.9 L (22.0-30.0) sec Sodium (137-145) mmol/L Potassium (3.5-5.1) mmol/L Chloride (98-107) mmol/L Carbon Dioxide (22-30) mmol/L Anion Gap mmol/L BUN (7-17) mg/dL Creatinine (0.52-1.04) mg/dL Est GFR (CKD-EPI)AfAm (>60 ml/min/1.73 sqM) Est GFR (CKD-EPI)NonAf (>60 ml/min/1.73 sqM) Glucose (74-99) mg/dL Calcium (8.4-10.2) mg/dL Magnesium (1.6-2.3) mg/dL Total Bilirubin (0.2-1.3) mg/dL AST (14-36) U/L ALT (9-52) U/L Alkaline Phosphatase (38-126) U/L Total Creatine Kinase (30-135) U/L CK-MB (CK-2) (0.0-2.4) ng/mL CK-MB (CK-2) Rel Index Troponin I (0.000-0.034) ng/mL NT-Pro-B Natriuret Pep 2140 pg/mL Total Protein (6.3-8.2) g/dL Albumin (3.5-5.0) g/dL Stool Occult Blood Negative (Negative) - EKG Data -: EKG Interpreted by [facility] EKG shows normal: sinus rhythm (Sinus rhythm rate 69 LA interval 126 QRS 70 QT since QTC of/437 nonspecific inferior and anterior changes this is compared to an EKG dated 05/02/17) - Radiology Data Radiology results: report reviewed (Review the imaging shows evidence of pulmonary vascular congestion with bilateral pleural effusions more in the right than the left), image reviewed Critical Care Time Critical Care Time: Yes Critical Care Time: 37 minutes of critical care time which includes initial presentation with history physical labs x-rays monitoring the EMS run and discussed with paramedics. Discussed with the patient family regarding findings. Discussion with the admitting physician. Admission orders and documentation of the above. Disposition Clinical Impression: CHF (congestive heart failure), Acute exacerbation of chronic obstructive airways disease, Upper GI bleed, Anemia, Hypoxemia Disposition: ADMITTED IP TO THIS [facility] Condition: Stable Referrals: Kristopher Amaya MD [Primary Care Provider] - 1-2 days
[2017-08-19 15:28] LABS: Basophils # (A) 0.1 k/uL (0-0.2); Basophils % (A) 1 %; Eosinophils # (A) 0.2 k/uL (0-0.7); Eosinophils % (A) 2 %; Hypochromasia Marked; Lymphocytes # (A) 2.4 k/uL (1.0-4.8); Lymphocytes % (A) 20 %; MCH 20.2 pg (25.0-35.0); MCV 74.6 fL (80.0-100.0); Mean Platelet Volume 8.1; Microcytosis Slight; Monocytes # (A) 0.7 k/uL (0-1.0); Monocytes % (A) 6 %; Neutrophils % (A) 68 %; Platelet Count 393 k/uL (150-450); Poikilocytosis Slight; RBC 3.35 m/uL (3.80-5.40); RDW 15.6 % (11.5-15.5); WBC 11.9 k/uL (3.8-10.6)
[2017-08-19 15:33] LABS: Albumin 3.9 g/dL (3.5-5.0); Calcium 9.5 mg/dL (8.4-10.2); HGB 6.7 gm/dL (11.4-16.0); Potassium 4.6 mmol/L (3.5-5.1); Total Bilirubin 0.4 mg/dL (0.2-1.3); Total Protein 6.5 g/dL (6.3-8.2)
--- NOTE | 2017-08-19 15:36 | XR ---
EXAMINATION TYPE: XR chest 2V DATE OF EXAM: 08/19/2017 COMPARISON: Chest x-ray May 10, 2017 and older studies. CTA chest July 25, 2016. HISTORY: History of COPD and asthma with difficulty in breathing. TECHNIQUE: Frontal and lateral views of the chest are obtained. FINDINGS: There is chronic parenchymal change with small right greater than left pleural effusions a nd associated bibasilar atelectasis and/or infiltrate redemonstrated.. The cardiac silhouette size r emains enlarged. The osseous structures remain demineralized. Underlying scoliosis is present. Left axillary surgical clips are seen. IMPRESSION: Chronic emphysematous change and cardiomegaly with small bilateral pleural effusions and associated bibasilar atelectasis and/or infiltrate all redemonstrated.
[2017-08-19 15:42] LABS: Prothrombin Time 9.7 sec (9.0-12.0)
[2017-08-19 15:50] LABS: Creatine Kinase MB 0.4 ng/mL (0.0-2.4); Troponin I 0.022 ng/mL (0.000-0.034)
[2017-08-19 16:05] LABS: Partial Thromboplastin Time 20.9 sec (22.0-30.0)
[2017-08-19] MEDS ORDERED: methylPREDNISolone SOD SUCCI 125 MG/2 ML VIAL IV SCH (18:00)
[2017-08-19] MEDS ORDERED: HYDROcodone/APAP 7.5-325MG 1 EACH TAB PO PRN (18:27)
[2017-08-19] MEDS ORDERED: INSULIN ASPART 100 UNIT/ML 1 ML 10 ML VIAL SQ SCH (18:30)
--- NOTE | 2017-08-19 18:47 | P.HPIM ---
History of Present Illness 81-year-old pleasant female came in with comments of shortness of breath orthopnea going on for 3 days denied any significant cough patient was unable to give any history of orthopnea patient has BNP that is elevated to 2500 does have elevated JVD does have history of severe mitral stenosis severe pulmonary hypertension with the RVSP of 78 does have history of COPD not in acute exacerbation quit smoking years ago. Denied any fever chills chest x-ray showing bilateral pleural effusions probably from the pulmonary hypertension patient is found to be severely anemic denied any recent stools rectal exam that was done in ER by ER physician showed brown stool fecal occult is negative patient's hemoglobin couple months ago and is around 9 now around 6 patient had history of peptic ulcer disease in the past which was cauterized in the past patient is receiving 1 unit of blood transfusion. Was started on Lasix twice a day. Does have history of COPD does not appear to be in acute exacerbation at this time Review of Systems REVIEW OF SYSTEMS: CONSTITUTIONAL: No fever, no malaise, no fatigue. HEENT: No recent visual problems or hearing problems. Denied any sore throat. CARDIOVASCULAR: As described in HPI PULMONARY: No shortness of breath, no cough, no hemoptysis. GASTROINTESTINAL: No diarrhea, no nausea, no vomiting, no abdominal pain. Normoactive bowel sounds. NEUROLOGICAL: No headaches, no weakness, no numbness. HEMATOLOGICAL: Denies any bleeding or petechiae. GENITOURINARY: Denies any burning micturition, frequency, or urgency. MUSCULOSKELETAL/RHEUMATOLOGICAL: Denies any joint pain, swelling, or any muscle pain. ENDOCRINE: Denies any polyuria or polydipsia. The rest of the 14-point review of systems is negative. Past Medical History Past Medical History: Asthma, Cancer, Heart Failure, COPD, Diabetes Mellitus, GI Bleed, Hyperlipidemia, Hypertension, Osteoarthritis (OA), Pneumonia, Pulmonary Embolus (PE), Rheumatoid Arthritis (RA), Sleep Apnea/CPAP/BIPAP Additional Past Medical History / Comment(s): sleep apnea ,glaucoma, back pain History of Any Multi-Drug Resistant Organisms: None Reported Past Surgical History: Bowel Resection, Breast Surgery, Ear Surgery, Hysterectomy Additional Past Surgical History / Comment(s): Left breast lumpectomy 1989, lyh node removal, status post radiation, abd mass removed november of 2013 Past Anesthesia/Blood Transfusion Reactions: No Reported Reaction Past Psychological History: No Psychological Hx Reported Additional Psychological History / Comment(s): Lives alone. Meals on Wheels. Daughter lives close by and does help. Smoking Status: Former smoker Past Alcohol Use History: None Reported Past Drug Use History: None Reported - Past Family History Mother Family Medical History: Cancer Medications and Allergies Home Medications Medication Instructions Recorded Confirmed Type Atorvastatin Calcium [Lipitor] 40 mg PO DAILY 10/12/13 08/19/17 History Gabapentin [Neurontin] 100 mg PO TID 10/12/13 08/19/17 History Metoprolol Tartrate [Lopressor] 50 mg PO BID 10/12/13 08/19/17 History Albuterol Nebulized [Ventolin 2.5 mg INHALATION RT-Q6H PRN 12/08/13 08/19/17 History Nebulized] Omeprazole [PriLOSEC] 20 mg PO AC-BRKFST #30 capsule. 12/11/13 08/19/17 Rx Hydrocodone/Acetaminophen 1 tab PO QID PRN 04/29/14 08/19/17 History [Hydrocodone-Acetamin 7.5-325] Albuterol Inhaler [Ventolin Hfa 1 - 2 puff INHALATION RT-Q6H PRN 05/03/17 History Inhaler] Furosemide [Lasix] 40 mg PO DAILY 05/03/17 08/19/17 History Potassium Chloride ER [K-Dur 10] 20 meq PO DAILY 05/03/17 08/19/17 History amLODIPine [Norvasc] 5 mg PO DAILY 05/03/17 08/19/17 History Aspirin 81 mg PO DAILY chew 05/07/17 08/19/17 Rx Insulin Glargine [Lantus] 30 units SQ HS #0 05/07/17 08/19/17 Rx Ipratropium-Albuterol Nebulize 3 ml INHALATION RT-Q8H #90 05/07/17 08/19/17 Rx [Duoneb 0.5 mg-3 mg/3 ml Soln] ampul.neb C,E,Zinc,Copper 11/Dgapp7x/Lut 1 cap PO DAILY 08/19/17 08/19/17 History [Ocuvite Adult 50 Plus Softgel] Insulin Aspart [Novolog Flexpen] 15 unit SQ PC-BRKFST 08/19/17 08/19/17 History Insulin Aspart [Novolog Flexpen] 17 unit SQ PC-LUNCH 08/19/17 08/19/17 History Insulin Aspart [Novolog Flexpen] 17 unit SQ PC-SUPPER 08/19/17 08/19/17 History Latanoprost Ophth [Xalatan 0.005%] 1 drops BOTH EYES DAILY 08/19/17 08/19/17 History Lisinopril [Zestril] 10 mg PO DAILY 08/19/17 08/19/17 History Allergies Allergy/AdvReac Type Severity Reaction Status Date / Time No Known Allergies Allergy Verified 08/19/17 15:47 Physical Exam Vitals: Vital Signs Temp Pulse Resp BP Pulse Ox 08/19/17 17:49 67 08/19/17 17:42 67 18 166/72 93 L 08/19/17 17:41 66 08/19/17 16:13 63 18 145/69 90 L 08/19/17 15:43 68 08/19/17 15:38 78 08/19/17 15:09 91 L 08/19/17 15:08 98.4 F 73 18 151/63 87 L Intake and Output 08/19/17 08/19/17 08/19/17 06:59 14:59 22:59 Other: Weight 95.254 kg PHYSICAL EXAMINATION: GENERAL: The patient is alert and oriented x3, not in any acute distress. Well developed, well nourished. HEENT: Pupils are round and equally reacting to light. EOMI. No scleral icterus. No conjunctival pallor. Normocephalic, atraumatic. No pharyngeal erythema. No thyromegaly. CARDIOVASCULAR: S1 and S2 present. No murmurs, rubs, or gallops. He does have elevated JVD PULMONARY: Chest is clear to auscultation, no wheezing or crackles. ABDOMEN: Soft, nontender, nondistended, normoactive bowel sounds. No palpable organomegaly. MUSCULOSKELETAL: No joint swelling or deformity. EXTREMITIES: No cyanosis, clubbing, mild pedal edema. NEUROLOGICAL: Gross neurological examination did not reveal any focal deficits. SKIN: No rashes. Results CBC & Chem 7: 08/19/17 15:14 08/19/17 15:14 Labs: Abnormal Lab Results - Last 24 Hours (Table) 08/19/17 08/19/17 08/19/17 Range/Units 15:14 15:14 15:14 WBC 11.9 H (3.8-10.6) k/uL RBC 3.35 L (3.80-5.40) m/uL Hgb 6.7 L* (11.4-16.0) gm/dL Hct 25.0 L (34.0-46.0) % MCV 74.6 L (80.0-100.0) fL MCH 20.2 L (25.0-35.0) pg MCHC 27.0 L (31.0-37.0) g/dL RDW 15.6 H (11.5-15.5) % Neutrophils # 8.0 H (1.3-7.7) k/uL APTT 20.9 L (22.0-30.0) sec BUN 43 H (7-17) mg/dL Creatinine 1.40 H (0.52-1.04) mg/dL Glucose 187 H (74-99) mg/dL Assessment and Plan Plan: Shortness of breath: Most probably etiology is anemia with aortic stenosis pulmonary hypertension and mild heart failure. Patient may have subacute to chronic blood loss and to see monitor blood transfusion now. -Chronic to subacute blood loss anemia symptomatic with shortness of breath receiving monitor blood transfusion -severe aortic stenosis -Severe pulmonary hypertension history of sleep apnea -Chronic hypercapnic respiratory failure secondary to COPD patient is presently not in acute exacerbation -Possible mild chronic diastolic dysfunction with acute exacerbation -Type 2 diabetes mellitus -Hyperlipidemia -Hypertension -Patient at one point of time is on anticoagulation unsure why because of previous multiple GI bleeds her anti-correlation was discontinued -History of peptic ulcer disease underwent cauterization in the past. Patient is presently on Protonix twice a day which will be continued
[2017-08-19] MEDS: IPRATROPIUM-ALBUTEROL 3 ML NEB INHALATION SCH ×2 (18:54→23:18)
[2017-08-19] MEDS ORDERED: METOPROLOL TARTRATE 50 MG TAB PO SCH (21:00)
[2017-08-19] MEDS ORDERED: INSULIN DETEMIR 100 UNIT/ML 10 ML VIAL SQ SCH (21:00)
[2017-08-19] MEDS ORDERED: FUROSEMIDE 10 MG/ML 4 ML VIAL IV SCH (21:00)
[2017-08-19] MEDS ORDERED: PANTOPRAZOLE 40 MG/10 ML VIAL IVP SCH (21:00)
[2017-08-19] MEDS ORDERED: GABAPENTIN 100 MG CAP PO SCH (22:00)
[2017-08-19 22:40] VITALS: TEMP 98
[2017-08-19 23:22] VITALS: PULSE 94
[2017-08-19 23:59] LABS: Glucose,Whole Blood 397 mg/dL (75-99)
[2017-08-20] MEDS ORDERED: IPRATROPIUM-ALBUTEROL 3 ML NEB INHALATION SCH
[2017-08-20 00:18] VITALS: BP 149/66; RESP 26
--- NOTE | 2017-08-20 01:05 | ED ---
Medical Decision Making - Medical Decision Making The patient was noted be suddenly dyspneic with less than half of the blood transfusion performed. Patient was given 40 mg Lasix as well as a nebulizer treatment. Patient did not seem to respond well and quickly became unresponsive. CPR was initiated. ACLS protocol was initiated. Patient was intubated with a 7.5 ET tube by me with a William #3 blade. No sedation was needed. CPR and a Carie protocol was continued which did include IV epinephrine as well as CPR and cardioversion attempts. The process was continued for over 20 minutes. It did appear to be PEA on the monitor no Doppler pulses and ultrasound of the heart showed no evidence of cardiac movement. Patient was pronounced at 12:01 AM 08/20/17. I did discuss the case with Barry Yoo who is covering for Dr. Florence. I also did discuss the case with the medical clerical assistant's office Teresa Carmona. The patient is released. I did discuss the findings with the patient's son regarding the events. - Lab Data Result diagrams: 08/19/17 15:14 08/19/17 15:14 Lab Results 08/19/17 08/19/17 08/19/17 Range/Units 15:14 15:14 15:14 WBC 11.9 H (3.8-10.6) k/uL RBC 3.35 L (3.80-5.40) m/uL Hgb 6.7 L* (11.4-16.0) gm/dL Hct 25.0 L (34.0-46.0) % MCV 74.6 L (80.0-100.0) fL MCH 20.2 L (25.0-35.0) pg MCHC 27.0 L (31.0-37.0) g/dL RDW 15.6 H (11.5-15.5) % Plt Count 393 (150-450) k/uL Neutrophils % 68 % Lymphocytes % 20 % Monocytes % 6 % Eosinophils % 2 % Basophils % 1 % Neutrophils # 8.0 H (1.3-7.7) k/uL Lymphocytes # 2.4 (1.0-4.8) k/uL Monocytes # 0.7 (0-1.0) k/uL Eosinophils # 0.2 (0-0.7) k/uL Basophils # 0.1 (0-0.2) k/uL Hypochromasia Marked Poikilocytosis Slight Microcytosis Slight PT (9.0-12.0) sec INR (<1.2) APTT (22.0-30.0) sec Sodium 144 (137-145) mmol/L Potassium 4.6 (3.5-5.1) mmol/L Chloride 106 (98-107) mmol/L Carbon Dioxide 22 (22-30) mmol/L Anion Gap 16 mmol/L BUN 43 H (7-17) mg/dL Creatinine 1.40 H (0.52-1.04) mg/dL Est GFR (CKD-EPI)AfAm 41 (>60 ml/min/1.73 sqM) Est GFR (CKD-EPI)NonAf 36 (>60 ml/min/1.73 sqM) Glucose 187 H (74-99) mg/dL Calcium 9.5 (8.4-10.2) mg/dL Magnesium 2.0 (1.6-2.3) mg/dL Total Bilirubin 0.4 (0.2-1.3) mg/dL AST 18 (14-36) U/L ALT 19 (9-52) U/L Alkaline Phosphatase 106 (38-126) U/L Total Creatine Kinase 36 (30-135) U/L CK-MB (CK-2) 0.4 (0.0-2.4) ng/mL CK-MB (CK-2) Rel Index 1.1 Troponin I 0.022 (0.000-0.034) ng/mL NT-Pro-B Natriuret Pep pg/mL Total Protein 6.5 (6.3-8.2) g/dL Albumin 3.9 (3.5-5.0) g/dL Stool Occult Blood (Negative) 08/19/17 08/19/17 08/19/17 Range/Units 15:14 15:14 16:30 WBC (3.8-10.6) k/uL RBC (3.80-5.40) m/uL Hgb (11.4-16.0) gm/dL Hct (34.0-46.0) % MCV (80.0-100.0) fL MCH (25.0-35.0) pg MCHC (31.0-37.0) g/dL RDW (11.5-15.5) % Plt Count (150-450) k/uL Neutrophils % % Lymphocytes % % Monocytes % % Eosinophils % % Basophils % % Neutrophils # (1.3-7.7) k/uL Lymphocytes # (1.0-4.8) k/uL Monocytes # (0-1.0) k/uL Eosinophils # (0-0.7) k/uL Basophils # (0-0.2) k/uL Hypochromasia Poikilocytosis Microcytosis PT 9.7 (9.0-12.0) sec INR 1.0 (<1.2) APTT 20.9 L (22.0-30.0) sec Sodium (137-145) mmol/L Potassium (3.5-5.1) mmol/L Chloride (98-107) mmol/L Carbon Dioxide (22-30) mmol/L Anion Gap mmol/L BUN (7-17) mg/dL Creatinine (0.52-1.04) mg/dL Est GFR (CKD-EPI)AfAm (>60 ml/min/1.73 sqM) Est GFR (CKD-EPI)NonAf (>60 ml/min/1.73 sqM) Glucose (74-99) mg/dL Calcium (8.4-10.2) mg/dL Magnesium (1.6-2.3) mg/dL Total Bilirubin (0.2-1.3) mg/dL AST (14-36) U/L ALT (9-52) U/L Alkaline Phosphatase (38-126) U/L Total Creatine Kinase (30-135) U/L CK-MB (CK-2) (0.0-2.4) ng/mL CK-MB (CK-2) Rel Index Troponin I (0.000-0.034) ng/mL NT-Pro-B Natriuret Pep 2140 pg/mL Total Protein (6.3-8.2) g/dL Albumin (3.5-5.0) g/dL Stool Occult Blood Negative (Negative) Critical Care Time Critical Care Time: Yes Critical Care Time: 35 minutes of critical care time which included the code as well as managing the code CPR and ACLS protocol this does not include intubation time. This does include discussion with the patient's son as well as the medical clerical assistant and the admitting physician. Documentation the above also. Disposition Clinical Impression: CHF (congestive heart failure), Acute exacerbation of chronic obstructive airways disease, Upper GI bleed, Anemia, Hypoxemia, Sudden cardiac , Pulseless electrical activity Disposition: Preliminary Cause of : Sudden cardiac , CHF, COPD, upper GI bleed with anemia Procedures - Intubation Time Out Performed: No (CPR in progress) Laryngoscope: William Size: 3 ET Tube Size: 7.5 ET Tube Uncuffed: No Tube Secured Depth (cm): 23 Tube Secured Location: lips Tube Placement Confirmation: visualized tube passing through cords, equal breath sounds bilaterally, confirmation by capnometry Patient Tolerated Procedure: well Intubation Complications: none
[2017-08-20] MEDS ORDERED: PANTOPRAZOLE 40 MG TABLET PO SCH (07:30)
[2017-08-20] MEDS ORDERED: INSULIN ASPART 100 UNIT/ML 1 ML 10 ML VIAL SQ SCH ×2 (08:30→13:30)
[2017-08-20] MEDS ORDERED: ASPIRIN 81 MG PO SCH (09:00)
[2017-08-20] MEDS ORDERED: LATANOPROST 0.005% OPHTH DROPS 2.5 ML BTL BOTH EYES SCH (09:00)
[2017-08-20] MEDS ORDERED: ATORVASTATIN 40 MG TAB PO SCH (09:00)
== END 2017-08-20 04:25 | disposition expired | DRG 811 ==
LOC: EC 14:56 → 6SEL 17:27
PROVIDERS: ADMIT Internal Medicine; ATTEND Internal Medicine
PROC: 30230N1 Transfusion of Nonautologous Red Blood Cells into Peripheral Vein, Open Approach (ICD-10-PCS; principal; 2017-08-19)
PROC: 5A12012 Performance of Cardiac Output, Single, Manual (ICD-10-PCS; 2017-08-20)
DX: D50.0 Iron deficiency anemia secondary to blood loss (chronic) (principal); I50.33 Acute on chronic diastolic (congestive) heart failure; J44.1 Chronic obstructive pulmonary disease with (acute) exacerbation; J96.12 Chronic respiratory failure with hypercapnia; K92.2 Gastrointestinal hemorrhage, unspecified; J96.11 Chronic respiratory failure with hypoxia; I11.0 Hypertensive heart disease with heart failure; I46.9 Cardiac arrest, cause unspecified; E11.9 Type 2 diabetes mellitus without complications; E78.5 Hyperlipidemia, unspecified; G47.30 Sleep apnea, unspecified; H40.9 Unspecified glaucoma; I27.20 Pulmonary hypertension, unspecified; M06.9 Rheumatoid arthritis, unspecified; M19.90 Unspecified osteoarthritis, unspecified site; I08.0 Rheumatic disorders of both mitral and aortic valves; Z79.4 Long term (current) use of insulin; Z79.82 Long term (current) use of aspirin; Z79.899 Other long term (current) drug therapy; Z86.711 Personal history of pulmonary embolism; Z87.11 Personal history of peptic ulcer disease; Z87.891 Personal history of nicotine dependence; Z90.710 Acquired absence of both cervix and uterus; Z92.3 Personal history of irradiation; Z99.81 Dependence on supplemental oxygen; Z90.49 Acquired absence of other specified parts of digestive tract; Z85.9 Personal history of malignant neoplasm, unspecified
CPT/HCPCS: 31500; 36415; 71046; 80053; 82272; 82550; 82553; 83735; 83880; 84484; 85025; 85610; 85730; 86850; 86900; 86901; 86920; 92950; 93005; 94640; 96374; 96375; 96376; 99291